=== PATIENT | male | born 1965 | race Caucasian/White ===

== ENCOUNTER 2020-05-31 08:53 | Day surgery (SDC) | payer OTHER ==
[2020-05-31] MEDS ORDERED: Ringers Lactate 1,000 ML IV ONE (09:19)
[2020-05-31] MEDS ORDERED: propofoL 200 MG/20 ML VIAL IV ONE ×3 (10:58)
[2020-05-31] MEDS ORDERED: LIDOCAINE 1% MPF 30 ML VIAL ONE (10:58)
[2020-05-31 12:25] VITALS: TEMP 97.5; O2SAT 96
[2020-05-31 12:27] VITALS: BP 98/54
--- NOTE | 2020-06-03 04:28 | ENDO RPT ---
[address], [address] COLONOSCOPY PROCEDURE REPORT EXAM DATE: 05/31/2020 PATIENT NAME: Efren Schuster MR #: [id number] BIRTHDATE: 1965 ATTENDING: Sj Christian DR STATUS: outpatient PLANT BREEDER: Dominique Cagle RN and Rohan Arana [facility] INDICATIONS: The patient is a 55 yr old Male here for a colonoscopy due to colon cancer screening PROCEDURE PERFORMED: Colonoscopy with biopsy - cold polypectomy MEDICATIONS: Per Anesthesia. ESTIMATED BLOOD LOSS: None CONSENT: The patient understands the risks and benefits of the procedure and understands that these risks include, but are not limited to: sedation, allergic reaction, infection, perforation and/or bleeding. Alternative means of evaluation and treatment include, among others: physical exam, x-rays, and/or surgical intervention. The patient elects to proceed with this endoscopic procedure. DESCRIPTION OF PROCEDURE: During intra-op preparation period all mechanical medical equipment was checked for proper function. Hand hygiene and appropriate measures for infection prevention was taken. Procedure, possible complications, alternatives including, but not limited to possibility of bleeding, perforation, tear, infection, sepsis, need for surgery, need for blood transfusion, were explained to the patient. After the risks, benefits and alternatives of the procedure were thoroughly explained, Informed consent was verified, confirmed and timeout was successfully executed by the treatment team. The patient was placed in the left lateral position. A digital rectal exam was performed and revealed internal hemorrhoids and A digital rectal exam was performed and revealed an enlarged prostate. After appropriate level of anesthesia, the scope was passed. The [id number] ([id number] endoscope was introduced through the anus and advanced to the cecum, which was identified by both the appendix and ileocecal valve. The quality of the prep was fair. The instrument was then slowly withdrawn as the colon was fully examined. Scope withdrawal time was 9 minutes. COLON FINDINGS: A small smooth and polypoid shaped pedunculated polyp with a friable surface was found in the anal canal. A polypectomy was performed with a cold snare. The resection was complete, the polyp tissue was completely retrieved and sent to histology. There was evidence of a prior functional end-to-end colo-colonic surgical anastomosis in the rectosigmoid colon. Retroflexed views revealed no abnormalities. The scope was then completely withdrawn from the patient and the procedure terminated. ADVERSE EVENTS: There were no complications. IMPRESSIONS: 1. Small pedunculated polyp was found; polypectomy was performed with a cold snare 2. There was evidence of a prior colo-colonic surgical anastomosis in the rectosigmoid colon RECOMMENDATIONS: 1. avoid NSAIDS for 2 weeks 2. await biopsy results 3. fiber rich diet 4. follow-up: office 2 week(s) 5. Monitor for any evidence of rectal bleeding. 6. CT scan 7. increase dietary water 8. hemorrhoidal hygiene RECALL: for Colonoscopy, pending biopsy results. Sj Christian DR eSigned: Sj Christian DR 05/31/2020 11:26 AM cc: CPT CODES: ICD9 CODES: PATIENT NAME: Efren Schuster MR#: [id number]
== END 2020-05-31 12:00 | disposition home or self-care (01) ==
LOC: OR 08:53
PROVIDERS: ATTEND Surgery
PROC: 0DBP8ZX Excision of Rectum, Via Natural or Artificial Opening Endoscopic, Diagnostic (ICD-10-PCS; principal; 2020-05-31 10:15)
DX: Z12.11 Encounter for screening for malignant neoplasm of colon (principal); D12.9 Benign neoplasm of anus and anal canal; K64.8 Other hemorrhoids; N40.0 Benign prostatic hyperplasia without lower urinary tract symptoms; K43.2 Incisional hernia without obstruction or gangrene; F17.200 Nicotine dependence, unspecified, uncomplicated; Z20.828 Contact with and (suspected) exposure to other viral communicable diseases; Z98.0 Intestinal bypass and anastomosis status
CPT/HCPCS: 88305; 45385; U0002; J2704 ×3; J7120

== ENCOUNTER 2020-07-05 07:32 | Day surgery (SDC) | payer OTHER ==
--- OUTSIDE RECORDS SUMMARY | 2020-07-05 07:36 | XMS REPORT | Continuity of Care Document ---
:1965 Author Organization [facility] t Address [address] [place] [address] Care Team Providers Name Role Phone Unavailable Unavailable Unavailable Problems This patient has no known problems. Allergies, Adverse Reactions, Alerts This patient has no known allergies or adverse reactions. Medications This patient has no known medications. Procedures This patient has no known procedures. Encounters Start End Encounter Admission Attending Care Care Encounter Source Date/Time Date/Time Type Type Clinicians Facility Department ID 2020-06-29 2020-06-29 Outpatient [facility] [id number] [facility] 2020-06-22 2020-06-22 Outpatient [facility] [id number] [facility] Results This patient has no known results.
--- OUTSIDE RECORDS SUMMARY | 2020-07-05 07:36 | XMS REPORT ---
:1965 Author Organization [facility] Address [address], [facility] [address] [place] [address] Care Team Providers Name Role Phone Mauricio Unavailable [phone] PROBLEMS Type Condition ICD9-CM [id number] Onset Condition SNOMED Code Notes Code Code Dates Status Problem Arthritis M19.90 Active 0835007 Problem Essential I10 Active 61003137 hypertension Problem Ventral hernia K43.9 Active 881142942 without obstruction or gangrene Problem Primary M19.012 Active 314084985253236 osteoarthritis, left shoulder Problem Primary M19.011 Active 176354477399710 osteoarthritis, right shoulder Problem Cervical M54.12 Active 32552793 radiculopathy Problem Other chronic G89.29 Active 65897048 pain Problem Pain, joint, M25.511 Active 92201668367217961 shoulder, right Problem Pain, joint, M25.512 Active 75868363126109790 shoulder, left ALLERGIES No Known Allergies ENCOUNTERS from 1965 to 2020-06-28 Encounter Location Date Provider Diagnosis [facility] [address] 13 Jun, 2020 Tavon Martínez Pain , joint, [facility] [address] [employer] [employer], shoulder, [place] [address] M25.511 ; Pain , joint, shoulder , left M25.512 ; Primary osteoarthritis, right shoulder M19.011 and Imani lucille osteoarthritis, left shoulder M19.012 IMMUNIZATIONS Vaccine Route Administration Date Status Bupivicaine [place] Unknown Jun 22, 2020 Administered Prevnar 13 -Pneumonia Vaccine Unknown Apr 12, 2020 Ad ministered Kenalog (Triamcinolone) Unknown Jun 22, 2020 Administ ered SOCIAL HISTORY Tobacco Use: Social History Observation Description Date Details (start date - stop date) Current Smoker Sex Assigned At : Social History Observation Description Sex Assigned At Unknown Alcohol Screen Question Answer Notes Did you have a drink containing alcohol in Yes the past year? Points 6 Interpretation Positive How often did you have 6 or more drinks on Less than monthly (1 point) one occasion in the past year? How many drinks did you have on a typical 5 or 6 (2 points) day when you were drinking in the past year? How often did you have a drink containing Two to three times per week (3 alcohol in the past year? points) Tobacco Use/Smoking Question Answer Notes Are you a current smoker REASON FOR REFERRAL No Information VITAL SIGNS Height 69 in Jun, Weight 185.2 lbs Jun, BMI 27.35 kg/m2 Jun, Blood pressure systolic 120 mm Hg Jun, Blood pressure diastolic 84 mm Hg Jun, MEDICATIONS Medication SIG (Take, Route, Frequency, Start Date End Date Status Duration) Methocarbamol 750 MG TAKE 1 TABLET BY MOUTH TWICE Active A DAY Oral for 30 Lisinopril/HCTZ 20/12.5 one tablet PO Q daily for 90 1 Aug, Active days Centrum Silver - as directed Orally Activ e Meloxicam 15 MG as directed Orally Active Amlodipine Besylate 5 MG 1 tablet Orally Once a day Active for 30 Vitamin D3 405973 UNIT/GM as directed Ac tive Chantix 1 MG as directed Orally Active Sildenafil Citrate 100 MG 1 tablet as needed Orally Active Once a day for 30 day(s) Diclofenac Sodium 75 MG 1 tablet Orally Twice a day Active for 30 PROCEDURES No Information RESULTS No Results REASON FOR VISIT CONSULT: ELEAZAR SHOULDER PAIN(Logan) MEDICAL (GENERAL) HISTORY Type Description Date Medical History ERECTILE DISFUNCTION Medical History HTN Medical History Anxiety Medical History Diverticulitis Medical History TAKING ASPIRIN Surgical History removal of section of intestine 2011 Surgical History Endoscopy 06/03/2020 Surgical History Foot B/L Surgical History Hand LT- Ring finger Hospitalization History colectomy 2012 Goals Section No Information Health Concerns No Information MEDICAL EQUIPMENT No Information MENTAL STATUS No Information FUNCTIONAL STATUS No Information ASSESSMENTS Encounter Date Diagnosis Notes Jun, Primary osteoarthritis, left shoulder (I CD-10 - M19.012) Jun, Pain, joint, shoulder, right (ICD-10 - M 25.511) Jun, Primary osteoarthritis, right shoulder ( ICD-10 - M19.011) Jun, Pain, joint, shoulder, left (ICD-10 - M2 5.512) PLAN OF TREATMENT Treatment Notes Assessment Notes Clinical Notes Primary osteoarthritis, right -proceed with conservative sid atment shoulder measures including NSAIDs as needed, home exercise program and corticosteroid injections-given left shoulder kenalog injection without complication-ice and rest shoulder for 24 hours-f/u for right shoulder kenalog injection-if he has continued pain, we will discuss MRI Primary osteoarthritis, left -proceed with conservative esme tment shoulder measures including NSAIDs as needed, home exercise program and corticosteroid injections-given left shoulder kenalog injection without complication-ice and rest shoulder for 24 hours-f/u for right shoulder kenalog injection-if he has continued pain, we will discuss MRI Treatment Notes Test Name Order Date X-RAY EXAM SHOULDER 2 VIEWS ([id number]) 2020-06-28 XR SHOULDER ([id number]) 2020-06-28 Next Appt Details Right shoulder Kenalog Reason: Provider Name:Tavon Martínez, 2020-06-29 0 9:15:00 AM, [address], [place], [address], Provider Name:Anitra Salinasok, 2020-07-26 01 :00:00 PM, [address], [address], [place], [address], Insurance Providers Payer Name Payer Address Payer Insured Patient Coverage Cover age Phone Name Relationship to Start Date End Date Insured [facility] [phone] Efren Schuster [employer] [facility] [address] [address] [facility])
--- OUTSIDE RECORDS SUMMARY | 2020-07-05 07:36 | XMS REPORT ---
:1965 Author Organization [facility] Address [address], [facility] [address] [place] [address] Care Team Providers Name Role Phone Mauricio Unavailable [phone] PROBLEMS Type Condition ICD9-CM [id number] Onset Condition SNOMED Code Notes Code Code Dates Status Problem Arthritis M19.90 Active 6479057 Problem Essential I10 Active 57989425 hypertension Problem Ventral hernia K43.9 Active 134126257 without obstruction or gangrene Problem Primary M19.012 Active 074238101984109 osteoarthritis, left shoulder Problem Primary M19.011 Active 756641642889986 osteoarthritis, right shoulder Problem Cervical M54.12 Active 36674440 radiculopathy Problem Other chronic G89.29 Active 71192109 pain Problem Pain, joint, M25.511 Active 51613645315920675 shoulder, right Problem Pain, joint, M25.512 Active 58761846638971343 shoulder, left ALLERGIES No Known Allergies ENCOUNTERS from 1965 to 2020-07-04 Encounter Location Date Provider Diagnosis [facility] [address] Jun, Tavon herreray [facility] [address], [facility] [address] right shoulder M19.011 ; Pain, joint, shoulder , left M25.512 ; Pain, joint, shoulder, right M25.511 and Imani lucille osteoarthritis, left shoulder M19.012 IMMUNIZATIONS Vaccine Route Administration Date Status Bupivicaine Alex Unknown Jun 29, 2020 Administered Bupivicaine Alex Unknown Jun 22, 2020 Administered Prevnar 13 -Pneumonia Vaccine Unknown Apr 12, 2020 Ad ministered Kenalog (Triamcinolone) Unknown Jun 29, 2020 Administ eregermaine Kenalog (Triamcinolone) Unknown Jun 22, 2020 Administ eregermaine SOCIAL HISTORY Tobacco Use: Social History Observation Description Date Details (start date - stop date) Never Smoker Sex Assigned At : Social History [...] Use/Smoking Question Answer Notes Are you a never smoker Additional Findings: Tobacco Non-User Current non-smoker REASON FOR REFERRAL No Information VITAL SIGNS Height 69 in Jun, Weight 185 lbs Jun, Temperature 97.1 degrees Fahrenheit Jun, BMI 27.32 kg/m2 Jun, Blood pressure systolic 120 mm Hg Jun, Blood pressure diastolic 78 mm Hg Jun, MEDICATIONS Medication SIG (Take, Route, Start Date End Date Status Frequency, Duration) Chantix 1 MG as directed Orally Active Methocarbamol 750 MG TAKE 1 TABLET BY MOUTH Active TWICE A DAY Oral for 30 Vitamin D3 104253 UNIT/GM as directed Ac tive Lisinopril/HCTZ 12.5 one tablet PO Q daily Aug, Active for 90 days Lisinopril-Hydrochlorothiaz Active cristal Diclofenac Sodium 75 MG 1 tablet Orally Twice a Active day for 30 Amlodipine Besylate 5 MG 1 tablet Orally Once a Active day for 30 BuPROPion HCl ER (SR) Not-Ta Sildenafil Citrate 100 MG 1 tablet as needed Active Orally Once a day for 30 day(s) Centrum Silver - as directed Orally Activ e Meloxicam 15 MG as directed Orally Not-Ta Ibuprofen Active PROCEDURES No Information RESULTS No Results REASON FOR VISIT F/U RT SHOULDER PAIN- KENALOG INJECTION MEDICAL (GENERAL) HISTORY Type Description Date Medical [...] left shoulder (I CD-10 - M19.012) Jun, Primary osteoarthritis, right shoulder ( ICD-10 - M19.011) Jun, Pain, joint, shoulder, right (ICD-10 - M 25.511) Jun, Pain, joint, shoulder, left (ICD-10 - M2 5.512) PLAN OF TREATMENT Medication Medication Name Sig Start Date Stop Date Diclofenac Sodium 75 MG 1 tablet Orally Twice a day for 30 Treatment Notes Assessment Notes Clinical Notes Primary osteoarthritis, right -proceed with conservative sid atment shoulder measures including NSAIDs as needed, home exercise program and corticosteroid injections-given right shoulder kenalog injection without complication-ice and rest shoulder for 24 hours-if he has continued pain, we will discuss MRI Primary osteoarthritis, left -proceed with conservative esme tment shoulder measures including NSAIDs as needed, home exercise program and corticosteroid injections-given right shoulder kenalog injection without complication-ice and rest shoulder for 24 hours-if he has continued pain, we will discuss MRI Next Appt Details 2 Months Reason: Provider Name:Anitra Ortega, 2020-07-26 01 :00:00 PM, [address], [address], [place], [address], Provider Name:Tavon Martínez, 2020-09-06 0 1:00:00 PM, [address], [place], [address], Insurance Providers Payer Name Payer Address Payer Insured Patient Coverage Cover age Phone Name Relationship to Start Date End Date Insured [facility] [phone] Efren Schuster [facility] [address] [address] [facility])
[2020-07-05] MEDS ORDERED: Ringers Lactate 1,000 ML IV ONE ×2 (08:01→09:27)
[2020-07-05] MEDS ORDERED: CEFAZOLIN/SWI 1gm 1 GM/10 ML SYR ONE (08:01)
[2020-07-05] MEDS ORDERED: BUPIVACA 0.25%/EPI 0.0005% MDV 50 ML VIAL ONE (08:14)
[2020-07-05] MEDS ORDERED: ROCURONIUM 50 MG/5 ML VIAL IV ONE ×2 (08:23→09:06)
[2020-07-05] MEDS ORDERED: FENTANYL CITR 100 MCG/2 ML ONE ×2 (08:23→09:07)
[2020-07-05] MEDS ORDERED: propofoL 200 MG/20 ML VIAL IV ONE (08:23)
[2020-07-05] MEDS ORDERED: ONDANSETRON 4 MG/2 ML VIAL ONE ×2 (08:24→12:24)
[2020-07-05] MEDS ORDERED: LIDOCAINE 2% MPF 5 ML VIAL ONE (08:24)
[2020-07-05] MEDS ORDERED: MIDAZOLAM HCL 2 MG/2 ML INJ ONE (08:24)
[2020-07-05] MEDS ORDERED: dexAMETHasone 4 MG/ML VIAL ONE (08:24)
[2020-07-05] MEDS ORDERED: KETOROLAC 30 MG/ML INJ ONE (08:24)
[2020-07-05] MEDS ORDERED: NS 0.9% VIAL 10 ML ONE ×3 (09:06→10:13)
[2020-07-05] MEDS ORDERED: VECURONIUM 10 MG/VIAL IV ONE (09:07)
[2020-07-05] MEDS ORDERED: Phenylephrine HCl 10 MG/ML 1 ML VIAL ONE (09:18)
--- NOTE | 2020-07-05 10:36 | P.OP ---
Preoperative diagnosis: Large Incisional Ventral Hernia Postoperative diagnosis: Large Incisional Ventral Hernia Primary procedure: Laparoscopic Ventral Hernia Repair with mesh Anesthesia: GETA + Local Estimated blood loss: <5cc Specimen: None Findings: 20cm x15 cm ventral hernia, bruneian cheese type Complications: None Implants: Bard Ventralite ST Mesh with echo postition [id number] Transferred to: Recovery Room Condition: Good
[2020-07-05] MEDS ORDERED: GLYCOPYRROLATE 0.2 MG/ML SYR ONE (10:42)
[2020-07-05] MEDS: HYDROMORPHONE HCL 1 MG/ML INJ ONE ×5 (10:52→11:26)
[2020-07-05] MEDS ORDERED: NEOSTIGMINE 1 MG/ML -5 ML ONE (10:57)
[2020-07-05] MEDS: MEPERIDINE HCL 25 MG/ML SYR ONE ×2 (11:07→11:12)
--- NOTE | 2020-07-05 11:38 | OP ---
Date of Procedure: 07/05/2020 Surgeon: Carrie Christian MD, Preoperative Diagnosis: Large incisional ventral hernia. Postoperative Diagnosis: Large incisional ventral hernia. Procedure Performed: Laparoscopic ventral repair with mesh. Anesthesia: General endotracheal plus local with 0.25% Marcaine. Estimated Blood Loss: Less than 5 mL. Specimen: None. Findings: A 20 cm x 15 cm ventral hernia, complex, Finnish cheese appearance through the midline incis ional type. Specimen: None. Complications: None. Implants: Bard Ventralight ST mesh with Echo Positioning System approximately 25 x 20 cm. Disposition: The patient transferred recovery in good condition. Procedure In Detail: After informed consent was obtained, the patient was brought to the operating r oom, prepped and draped in the usual sterile fashion. After adequate anesthesia, a left upper quadra nt incision was made. A 5 mm 0-degree optical trocar was introduced in the abdomen without any evide nce of complication. Insufflation was obtained to 15 mmHg at this time. There was no injury to deejay l structure into the abdomen. Additional trocar was chosen in the left lower quadrant. This was sim ilarly anesthetized and sharply incised. A 5 mm trocar was introduced in the abdomen without any seven dence of complication. The left upper quadrant was then up-sized to a 12 mm under direct vision with out any evidence of complication. Additional trocar was placed in the right lower quadrant. The are a was similarly anesthetized and sharply incised. A 5 mm trocar was introduced in the abdomen withou t any evidence of complication. I then proceeded to take the omentum out of the hernia, which was on the midline. This was cheese appearance approximately 20 cm x 15 cm defect. I removed the omentum using a combination of blunt and electrocautery dissection. Using the LigaSure device, the omentum w as essentially completely cleared and the falciform ligament was pushed anteriorly and dissected free slightly to allow for an adequate landing zone. I sized the mesh appropriately at this point and br ought it into the lateral trocar and secured it circumferentially using the balloon deployment system through the central portion of the wound using the Echo Positioning System and a Garrick-Sourav sut ure passer. After the mesh was deployed, I circumferentially placed double crown of absorbable tacks using the SorbaFix fixation tacks. Approximately 100 tacks were used securing the mesh to the anter ior abdominal wall with good apposition of the tissues. I checked under de-sufflation. Pressure tana osition was good. I then noted there was 1 area of bleeding from the right lower quadrant through on e of the areas where a tack absorbable fixation tack was placed. I made a small stab incision in the right lower quadrant and passed a 2-0 PDS suture with good hemostasis at this point using a Garrick-BerGenBio suture passer. I then inspected the area and no additional maneuvers were required. I then removed the left upper quadrant trocar, which was a 12 mm trocar and closed with a Rene vang ture passer with 0 Vicryl in interrupted fashion with good approximation of tissues and then desuffla carrie the abdomen under direct visualization without any evidence of complication. All trocars were re moved. All skin incisions were copiously irrigated and closed with 4-0 Monocryl in a running fashion . Dermabond was placed over top. An abdominal binder was placed with a dressing anteriorly. The pa tient tolerated the procedure well without any evidence of complication and transferred to PACU in go od condition. All counts were correct at the end of the case. JING/AMANDA Voice ID: [id number] Report ID: [id number]
[2020-07-05] MEDS ORDERED: NA CHLORIDE 0.9% 500 ML ONE (11:41)
[2020-07-05 11:55] VITALS: BP 102/67; TEMP 98.2; O2SAT 91
[2020-07-05] MEDS ORDERED: HYDROCODONE/APAP 7.5/325 MG TAB ONE (12:30)
== END 2020-07-05 13:05 | disposition home or self-care (01) ==
LOC: OR 07:32
PROVIDERS: ATTEND Surgery
PROC: 0WUF4JZ Supplement Abdominal Wall with Synthetic Substitute, Percutaneous Endoscopic Approach (ICD-10-PCS; principal; 2020-07-05 08:30)
DX: K43.2 Incisional hernia without obstruction or gangrene (principal); Z20.828 Contact with and (suspected) exposure to other viral communicable diseases
CPT/HCPCS: 49654; U0002; J2704; J1100; J2370; J2250; J3010 ×2; J2175; J1170 ×2; J2710; J0690; J7120 ×2; J7040; J2405 ×2

== ENCOUNTER 2020-11-26 06:39 | Day surgery (SDC) | payer OTHER, SELFPAY ==
[2020-11-26] MEDS ORDERED: Phenylephrine HCl 10 MG/ML 1 ML VIAL ONE (07:02)
[2020-11-26] MEDS ORDERED: LIDOCAINE 4% TOP SOLUTION ONE (07:03)
[2020-11-26] MEDS ORDERED: LIDOCAINE VISCOUS 2% SOLN 15 ML UDC ONE ×2 (07:03→07:26)
[2020-11-26] MEDS ORDERED: LIDOCAINE 1% MPF 30 ML VIAL ONE ×2 (07:03→07:26)
[2020-11-26] MEDS ORDERED: GLYCOPYRROLATE 0.2 MG/ML SYR ONE (07:03)
[2020-11-26] MEDS ORDERED: Ringers Lactate 1,000 ML IV ONE (07:04)
[2020-11-26] MEDS ORDERED: MIDAZOLAM HCL 2 MG/2 ML INJ ONE (07:49)
[2020-11-26] MEDS ORDERED: LIDOCAINE 1% MPF 5 ML VIAL ONE (08:00)
[2020-11-26] MEDS ORDERED: propofoL 200 MG/20 ML VIAL IV ONE (08:00)
[2020-11-26] MEDS ORDERED: FENTANYL CITR 100 MCG/2 ML ONE (08:00)
--- NOTE | 2020-11-26 08:54 | RAD REPORT ---
EXAM DESCRIPTION: RAD - FLUORO-GUIDE FOR BRONCH UPT1HR - 11/26/2020 8:35 am CLINICAL HISTORY: Lung mass FINDINGS: Three fluoroscopic spot images obtained. Bronchoscope is present within the right lung Fluoroscopy time 4.2 minutes Bronchoscopy performed by Dr. Patel
--- NOTE | 2020-11-26 09:13 | P.OP ---
Date of Service: 11/26/20 (Bronchoscopy with a right upper lobe biopsy) Findings and Operative Technique Patient is [age] years of age presented with advanced lung cancer had upper lobe mass with mediastinal adenopathy was admitted for bronchoscopy narrative report after obtaining informed consent from the patient he was premedicated Findings normal vocal cords normal trachea normal sammi normal left-sided bronchial anatomy normal bronchus iintermedius, right lower low/no obvious tumor found in the right upper lobe bronchus I was not able advance the biopsy forceps I suspect he may have right distal obstruction Procedure complicated by i.e. bleeding I was not able to do the BAL are wire brushings in addition patient had the significant obstruction of his airway from the medication the presumably has obstructive sleep apnea
[2020-11-26 09:15] VITALS: TEMP 97.2; O2SAT 98
[2020-11-26 09:35] VITALS: BP 107/74
--- NOTE | 2020-11-26 09:53 | RAD REPORT ---
EXAM DESCRIPTION: Akhil Single View3 9:27 am CLINICAL HISTORY: Device placement bronchoscopy placement IMPRESSION: A pneumothorax is not present status post bronchoscopy.
== END 2020-11-26 10:08 | disposition home or self-care (01) ==
LOC: OR 06:39
PROVIDERS: ATTEND Internal Medicine Sleep Medicine
PROC: 0BJ08ZZ Inspection of Tracheobronchial Tree, Via Natural or Artificial Opening Endoscopic (ICD-10-PCS; principal; 2020-11-26 07:30)
DX: R91.8 Other nonspecific abnormal finding of lung field (principal); Z87.891 Personal history of nicotine dependence; Z20.822 Contact with and (suspected) exposure to COVID-19
CPT/HCPCS: 31622; 88305; 71045; 76000; U0002; J2704; J2370; J2250; J7120; J3010

== ENCOUNTER 2021-02-24 06:30 | Day surgery (SDC) | payer OTHER, SELFPAY ==
[2021-02-24] MEDS ORDERED: BSS OPTHALMIC SOL 15 ML BOT OPTH ONE (07:11)
[2021-02-24] MEDS ORDERED: BALANCED SALT IRRIG PLAIN 500 ML BTL IRR ONE (07:11)
[2021-02-24] MEDS ORDERED: TOBRADEX 0.3-0.1% OPTH OINTMENT ONE (07:11)
[2021-02-24] MEDS ORDERED: POVIDONE-IODINE 5% EYE DROPS ONE (07:12)
[2021-02-24] MEDS ORDERED: EPINEPHRINE/PF 1 MG/ML AMP ONE (07:12)
[2021-02-24] MEDS ORDERED: TROPICAMIDE 1% OPTH 3 ML BOT ONE (07:14)
[2021-02-24] MEDS ORDERED: CYCLOPENTOLATE 2% OPTH 2 ML ONE (07:15)
[2021-02-24] MEDS ORDERED: PHENYLEPHRINE 2.5% OPTH 2 ML ONE (07:15)
[2021-02-24] MEDS ORDERED: Ringers Lactate 1,000 ML IV ONE (07:15)
[2021-02-24] MEDS ORDERED: KETOROLAC OPTHALMIC 5 ML BOT ONE (07:15)
[2021-02-24] MEDS ORDERED: MOXIFLOXACIN HCL 0.5% 3ML OPTH OPTH ONE (07:15)
[2021-02-24] MEDS ORDERED: propofoL 200 MG/20 ML VIAL IV ONE (07:20)
[2021-02-24] MEDS ORDERED: LIDOCAINE 2% MPF 5 ML VIAL ONE (07:21)
[2021-02-24] MEDS ORDERED: MIDAZOLAM HCL 2 MG/2 ML INJ ONE (07:21)
[2021-02-24] MEDS ORDERED: FENTANYL CITR 100 MCG/2 ML ONE (07:21)
[2021-02-24] MEDS ORDERED: DIAZEPAM 5 MG TABLET ONE (07:38)
[2021-02-24] MEDS ORDERED: DUOVISC 1 KIT OPTH ONE (08:00)
[2021-02-24] MEDS ORDERED: EPHEDRINE SULF 50 MG/ML VIAL ONE (08:23)
[2021-02-24 08:59] VITALS: O2SAT 94
[2021-02-24 10:33] VITALS: BP 89/65; TEMP 98.2
--- NOTE | 2021-02-24 20:35 | OP ---
Date of Procedure: 02/24/2021 Surgeon: Jose A Pinto MD Requirements Analyst: None. Preoperative Diagnosis: Visually significant cataract, left eye. Postoperative Diagnosis: Visually significant cataract, left eye. Description Of Procedure: After being properly identified in the preoperative holding area, the jeb ent was taken back to the operating room where a time-out was performed. The patient was then preppe d and draped in the normal sterile fashion. Two paracentesis ports were made using a 1.0 mm blade at the 12 o'clock and 6 o'clock position, and then the anterior chamber instilled with Viscoat. Graspi ng the globe with a pair of 0.12 forceps, the main phaco incision wound was made temporally using a 2 .75 mm keratome in a triplaner fashion. The anterior capsulotomy was performed using a cystotome and Utrata forceps. Hydrodissection and hydrodelineation of the lens were carried out using a Kenyon can nula resulting in free rotation of the lens nucleus. Thereafter, the lens was removed in a standard divide and conquer technique. Once all 4 quadrants had been removed, the phaco handpiece was exchang ed for a bimanual irrigation and aspiration handpieces through the paracentesis port, and all cortica l material was removed as well as the capsule being polished. The capsular bag was then insufflated with additional viscoelastic as part of the DuoVisc pack and an Solo model SN60WF, power 21.0 diopte r, serial #[id number] was delivered into the capsular bag and delivered into position with the hapti cs oriented at the 3 o'clock and 9 o'clock position. The viscoelastic was then removed using both th e bimanual and later coaxial handpiece. Once all viscoelastic had been removed, the wounds were hydr ated and tested for water tightness. The superior paracentesis wound did display small leak, and the refore, a single interrupted 10-0 nylon suture was placed. The iris did prolapse out of the wound on ce and it was reposited with relative ease. Because of the good depth of the chamber and good seal a fter hydration, no suture was placed through this wound as it was not felt that it was necessary. Th ere were no complications. Estimated Blood Loss: Less than 1 mL. The patient is to follow up with myself, Dr. Jose A Pinto, at the [facility] tomorrow morning. JPG/MODL Voice ID: [id number] Report ID: [id number]
== END 2021-02-24 10:10 | disposition home health service (06) ==
LOC: OR 06:30
PROVIDERS: ATTEND Ophthalmology
PROC: 08RK3JZ Replacement of Left Lens with Synthetic Substitute, Percutaneous Approach (ICD-10-PCS; principal; 2021-02-24 07:30)
DX: H26.9 Unspecified cataract (principal); H54.3 Unqualified visual loss, both eyes
CPT/HCPCS: 66984; J2704; J0171; J2250; J3010; J7120

== ENCOUNTER 2022-08-06 13:53 | Emergency (ER) | payer OTHER ==
--- OUTSIDE RECORDS SUMMARY | 2022-08-06 13:57 | XMS REPORT | Continuity of Care Document ---
:1965 Author Organization [facility] t Address [address] [place] [address] Care Team Providers Name Role Phone ZephyrhillsAnitra leon Attending Clinician Unavailable GINA UMANA Attending Clinician Unavailable Payers Payer Name Policy Type Policy Number Effective Date Expiration Date S [place] [address] [id number] [facility] (market [facility] [address] [place] [phone] [id number] [facility] ([facility] [address] [place] [phone] [id number] [facility] ([facility] [place] [address] [id number] [facility] ([facility] Problems Condition Condition Condition Status Onset Resolution Last Treating Co mments Source Name Details Category Date Date Treatment Clinician Date 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 [id number] Arthritis Problem Active Commo n Spirit - [facility] [id number] Cervical Problem Active Commo n radiculopa Spirit thy - [facility] [id number] Ventral Problem Active Commo n hernia Spirit without - [facility] obstructio [facility] gangrene [facility] [id number] Essential Problem Active Comm on hypertensi Spirit on - [facility] [id number] Pain, Problem Active Commo n [id number] joint, Spirit shoulder, - [facility] left 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 [id number] Primary Problem Active Comm on osteoarthr Spirit itis, - [facility] right [facility] [id number] Nontraumat Problem Active C ommon [id number] ic Spirit complete - [facility] tear of left [facility] rotator Medical cuff Center [id number] Pain, Problem Active Commo n [id number] joint, Spirit shoulder, - [facility] right [facility] [id number] Smoker Problem Active Common Spirit - [facility] [id number] Other Problem Active Common chronic Spirit pain - [facility] [id number] Carpal Problem Active Common tunnel Spirit syndrome - [facility] of left [facility] [id number] Tear of Problem Active Common left [facility] unspec[facility]ie d whether traumatic [id number] Bilateral Problem Active Co mmon [id number] carpal Spirit tunnel - [facility] syndrome [facility] Allergies, Adverse Reactions, Alerts This patient has no known allergies or adverse reactions. Social History Social Habit Start Date Stop Date Quantity Comments Source History of Tobacco Use Co mmon [facility] Sex Assigned At Com mon [facility] Smoking Status Start Date Stop Date Source Never Smoker Common [facility] Medications Ordered Filled Start Stop Current Ordering Indication Dosage Frequency Signature Comments Components Source Medication Medication Date Date Medication? Clinician (SIG) Name Name Izabella Parekh 0 No 40mg Common (Triamcinol (Triamcinol 9-13 S pirit one) one) 00:00: - [facility] Izabella Parekh 0 No 40mg Common (Triamcinol (Triamcinol 9-13 S pirit one) one) 00:00: - [facility] Naropin Naropin 2021-0 No 5mg Common (Ropivacain (Ropivacain 9-13 S pirit e HCl) e HCl) 00:00: - [facility] Naropin Naropin 2021-0 No 5mg Common (Ropivacain (Ropivacain 9-13 S pirit e HCl) e HCl) 00:00: - [facility] Izabella Parekh 2021-0 No 40mg Common (Triamcinol (Triamcinol 9-13 S pirit one) one) 00:00: - [facility] Izabella Parekh 2021-0 No 40mg Common (Triamcinol (Triamcinol 9-13 S pirit one) one) 00:00: - [facility] Naropin Naropin 2021-0 No 5mg Common (Ropivacain (Ropivacain 9-13 S pirit e HCl) e HCl) 00:00: - [facility] Naropin Naropin 2021-0 No 5mg Common (Ropivacain (Ropivacain 9-13 S pirit e HCl) e HCl) 00:00: - [facility] Sildenafil Sildenafil 2021-0 2- No 1{table QD Sildenafil Citrate 100 Citrate 100 01-03 t_as_ne Citrate MG MG 00:00: 00:00 eded} 100 MG 00 :00 Sildenafil Sildenafil 2021- No 1{table QD Sildenafil Citrate 100 Citrate 100 01-03- t_as_ne Citrate MG MG 00:00: 00:00 eded} 100 MG 00 :00 Sildenafil Sildenafil 2021- No 1{table QD Sildenafil Citrate 100 Citrate 100 01-03 t_as_ne Citrate MG MG 00:00: 00:00 eded} 100 MG 00 :00 Sildenafil Sildenafil 2021- No 1{table QD Sildenafil Citrate 100 Citrate 100 01-03- t_as_ne Citrate MG MG 00:00: 00:00 eded} 100 MG 00 :00 Sildenafil Sildenafil 2021- No 1{table QD Sildenafil Citrate 100 Citrate 100 01-03 t_as_ne Citrate MG MG 00:00: 00:00 eded} 100 MG 00 :00 Albuterol Albuterol No 1{puff_ Albuterol Sulfate HFA Sulfate HFA 1-26 as_need Sulfate 108 (90 108 (90 00:00: ed} HFA 108 Base) Base) 00 (90 Base) MCG/ACT MCG/ACT MCG/ACT Albuterol Albuterol No 1{puff_ Albuterol Sulfate HFA Sulfate HFA 1-26 as_need Sulfate 108 (90 108 (90 00:00: ed} HFA 108 Base) Base) 00 (90 Base) MCG/ACT MCG/ACT MCG/ACT Albuterol Albuterol No 1{puff_ Albuterol Sulfate HFA Sulfate HFA 1-26 as_need Sulfate 108 (90 108 (90 00:00: ed} HFA 108 Base) Base) 00 (90 Base) MCG/ACT MCG/ACT MCG/ACT Albuterol Albuterol No 1{puff_ Albuterol Sulfate HFA Sulfate HFA 1-26 as_need Sulfate 108 (90 108 (90 00:00: ed} HFA 108 Base) Base) 00 (90 Base) MCG/ACT MCG/ACT MCG/ACT Albuterol Albuterol 2022-0 No 1{puff_ Albuterol Sulfate HFA Sulfate HFA 1-26 as_need Sulfate 108 (90 108 (90 00:00: ed} HFA 108 Base) Base) 00 (90 Base) MCG/ACT MCG/ACT MCG/ACT Albuterol Albuterol 0 No 1{puff_ Albuterol Sulfate HFA Sulfate HFA 1-26 as_need Sulfate 108 (90 108 (90 00:00: ed} HFA 108 Base) Base) 00 (90 Base) MCG/ACT MCG/ACT MCG/ACT Albuterol Albuterol 0 No 1{puff_ Albuterol Sulfate HFA Sulfate HFA 1-26 as_need Sulfate 108 (90 108 (90 00:00: ed} HFA 108 Base) Base) 00 (90 Base) MCG/ACT MCG/ACT MCG/ACT Budesonide- Budesonide- 2021-0 2022- No 2{puffs QD Budesonide Formoterol Formoterol 10-05 } -Formotero Fumarate Fumarate 00:00: 00:00 l Fumarate 80-4.5 80-4.5 00 :00 80-4.5 MCG/ACT MCG/ACT MCG/ACT Budesonide- Budesonide- 0 2021- No 2{puffs QD Budesonide Formoterol Formoterol -01-03 } -Formotero Fumarate Fumarate 00:00: 00:00 l Fumarate 80-4.5 80-4.5 00 :00 80-4.5 MCG/ACT MCG/ACT MCG/ACT Bupivicaine Bupivicaine 0 No 2.5mg Common [place] Williamson 1-25 Spirit 00:00: - [facility] Bupivicaine Bupivicaine 2021-0 No 2.5mg Common [place] Williamson 1-25 Spirit 00:00: - [facility] Kenalog Kenalog 2021-0 No 40mg Common (Triamcinol (Triamcinol 1-25 S pirit one) one) 00:00: - [facility] Kenalog Kenalog 2021-0 No 40mg Common (Triamcinol (Triamcinol 1-25 S pirit one) one) 00:00: - [facility] Bupivicaine Bupivicaine 2021-0 No 2.5mg Common [place] 1-25 Spirit 00:00: - [facility] Bupivicaine Bupivicaine 2021-0 No 2.5mg Common [place] 1-25 Spirit 00:00: - [facility] Kenalog Kenalog 2021-0 No 40mg Common (Triamcinol (Triamcinol 1-25 S pirit one) one) 00:00: - [facility] Kenalog Kenalog 2021-0 No 40mg Common (Triamcinol (Triamcinol 1-25 S pirit one) one) 00:00: - [facility] Bupivicaine Bupivicaine 2021-0 No 2.5mg Common [place] 1-25 Spirit 00:00: - [facility] Bupivicaine Bupivicaine 2021-0 No 2.5mg Common [place] 1-25 Spirit 00:00: - [facility] Kenalog Kenalog 0 No 40mg Common (Triamcinol (Triamcinol 1-25 S pirit one) one) 00:00: - [facility] Kenalog Kenalog 2021-0 No 40mg Common (Triamcinol (Triamcinol 1-25 S pirit one) one) 00:00: - [facility] Kenalog Kenalog 2021-0 No 40mg Common (Triamcinol (Triamcinol 1-25 S pirit one) one) 00:00: - [facility] Bupivicaine Bupivicaine 2021-0 No 2.5mg Common [place] 1-25 Spirit 00:00: - [facility] Bupivicaine Bupivicaine 2021-0 No 2.5mg Common [place] 1-25 Spirit 00:00: - [facility] Kenalog Kenalog 2021-0 No 40mg Common (Triamcinol (Triamcinol 1-25 S pirit one) one) 00:00: - [facility] Kenalog Kenalog 2021-0 No 40mg Common (Triamcinol (Triamcinol 1-25 S pirit one) one) 00:00: - [facility] Bupivicaine Bupivicaine 2-0 No 2.5mg Common [place] 1-25 Spirit 00:00: - [facility] Bupivicaine Bupivicaine 2-0 No 2.5mg Common [place] 1-25 Spirit 00:00: - [facility] Kenalog Kenalog 2021-0 No 40mg Common (Triamcinol (Triamcinol 1-25 S pirit one) one) 00:00: - [facility] Sertraline Sertraline 2020-1 No 1{table QD Sertraline HCl 100 MG HCl 100 MG 0-26 t} HCl 100 MG 00:00: 00 Sertraline Sertraline 2020-1 No 1{table QD Sertraline HCl 100 MG HCl 100 MG 0-26 t} HCl 100 MG 00:00: 00 Sertraline Sertraline 2020-1 No 1{table QD Sertraline HCl 100 MG HCl 100 MG 0-26 t} HCl 100 MG 00:00: 00 Sertraline Sertraline 2020-1 No 1{table QD Sertraline HCl 100 MG HCl 100 MG 0-26 t} HCl 100 MG 00:00: 00 Sertraline Sertraline 2020-1 No 1{table QD Sertraline HCl 100 MG HCl 100 MG 0-26 t} HCl 100 MG 00:00: 00 Sertraline Sertraline 2020-1 No 1{table QD Sertraline HCl 100 MG HCl 100 MG 0-26 t} HCl 100 MG 00:00: 00 Sertraline Sertraline 2020-1 No 1{table QD Sertraline HCl 100 MG HCl 100 MG 0-26 t} HCl 100 MG 00:00: 00 Sertraline Sertraline 2020-1 No 1{table QD Sertraline HCl 100 MG HCl 100 MG 0-26 t} HCl 100 MG 00:00: 00 Sertraline Sertraline 2020-1 No 1{table QD Sertraline HCl 100 MG HCl 100 MG 0-26 t} HCl 100 MG 00:00: 00 Bupivicaine Bupivicaine 2020-0 No 2.5mg Common [place] 9-21 Spirit 00:00: - [facility] Felizalog Kenalog 2020-0 No 40mg Common (Triamcinol (Triamcinol 9-21 S pirit one) one) 00:00: - [facility] Bupivicaine Bupivicaine 2020-0 No 2.5mg Common [place] - Spirit 00:00: - [facility] Kenalog Kenalog 2020-0 No 40mg Common (Triamcinol (Triamcinol 9-21 S pirit one) one) 00:00: - [facility] Bupivicaine Bupivicaine 2020-0 No 2.5mg Common [place] - Spirit 00:00: - [facility] Felizalog Kenalog 2020-0 No 40mg Common (Triamcinol (Triamcinol 9-21 S pirit one) one) 00:00: - [facility] Bupivicaine Bupivicaine 2020-0 No 2.5mg Common [place] Williamson 05-31 Spirit 00:00: - [facility] Kenalog Kenalog 2020-0 No 40mg Common (Triamcinol (Triamcinol 9-21 S pirit one) one) 00:00: - [facility] Bupivicaine Bupivicaine 2020-0 No 2.5mg Common [place] Williamson - Spirit 00:00: - [facility] Kenalog Kenalog 2020-0 No 40mg Common (Triamcinol (Triamcinol 9-21 S pirit one) one) 00:00: - [facility] Tylenol # 3 Tylenol # 3 2020- No Tylenol # 300/30mg 300/30mg 05-27 3 300/30mg 00:00: 00:00 00 :00 Tylenol # 3 Tylenol # 3 2020-2020- No Tylenol # 300/30mg 300/30mg 05-27 3 300/30mg 00:00: 00:00 00 :00 Tylenol # 3 Tylenol # 3 2020- No Tylenol # 300/30mg 300/30mg 9-17 11-15 3 300/30mg 00:00: 00:00 00 :00 Tylenol # 3 Tylenol # 3 2020-0 1- No Tylenol # 300/30mg 300/30mg -17 11-15 3 300/30mg 00:00: 00:00 00 :00 Kenalog Kenalog 2020-0 No 40mg Common (Triamcinol (Triamcinol 4-20 S pirit one) one) 00:00: - [facility] Bupivicaine Bupivicaine 2020-0 No 2.5mg Common [place] 4-20 Spirit 00:00: - [facility] Kenalog Kenalog 2020-0 No 40mg Common (Triamcinol (Triamcinol 4-20 S pirit one) one) 00:00: - [facility] Bupivicaine Bupivicaine 2020-0 No 2.5mg Common [place] 4-20 Spirit 00:00: - [facility] Kenalog Kenalog 2020-0 No 40mg Common (Triamcinol (Triamcinol 4-20 S pirit one) one) 00:00: - [facility] Bupivicaine Bupivicaine 2020-0 No 2.5mg Common [place] 4-20 Spirit 00:00: - [facility] Kenalog Kenalog 2020-0 No 40mg Common (Triamcinol (Triamcinol 4-20 S pirit one) one) 00:00: - [facility] Bupivicaine Bupivicaine 2020-0 No 2.5mg Common [place] 4-20 Spirit 00:00: - [facility] Kenalog Kenalog 2020-0 No 40mg Common (Triamcinol (Triamcinol 4-20 S pirit one) one) 00:00: - [facility] Bupivicaine Bupivicaine 2020-0 No 2.5mg Common [place] 4-20 Spirit 00:00: - [facility] Bupivicaine Bupivicaine 2019-1 No 5mg Common [place] Williamson 0-20 Spirit 00:00: - [facility] Kenalog Kenalog 2020-1 No 40mg Common (Triamcinol (Triamcinol 0-20 S pirit one) one) 00:00: - [facility] Bupivicaine Bupivicaine 2020- No 5mg Common [place] Williamson 0-20 Spirit 00:00: - [facility] Kenalog Kenalog 2020-1 No 40mg Common (Triamcinol (Triamcinol 0-20 S pirit one) one) 00:00: - [facility] Bupivicaine Bupivicaine 2019- No 5mg Common [place] Williamson 0-20 Spirit 00:00: - [facility] Kenalog Kenalog 2019- No 40mg Common (Triamcinol (Triamcinol 0-20 S pirit one) one) 00:00: - [facility] Kenalog Kenalog 2020-1 No 40mg Common (Triamcinol (Triamcinol 0-20 S pirit one) one) 00:00: - [facility] Bupivicaine Bupivicaine 2019- No 5mg Common [place] Williamson 0-20 Spirit 00:00: - [facility] Kenalog Kenalog 2019- No 40mg Common (Triamcinol (Triamcinol 0-20 S pirit one) one) 00:00: - [facility] Bupivicaine Bupivicaine 2020-1 No 5mg Common [place] Williamson 0-20 Spirit 00:00: - [facility] Bupivicaine Bupivicaine 2020-1 No 5mg Common [place] Williamson 0-13 Spirit 00:00: - [facility] Kenalog Kenalog 2020-1 No 40mg Common (Triamcinol (Triamcinol 0-13 S pirit one) one) 00:00: - [facility] Bupivicaine Bupivicaine 2020-1 No 5mg Common [place] Williamson 0-13 Spirit 00:00: - [facility] Kenalog Kenalog 2020-1 No 40mg Common (Triamcinol (Triamcinol 0-13 S pirit one) one) 00:00: - [facility] Bupivicaine Bupivicaine 2019-1 No 5mg Common [place] Williamson 0-13 Spirit 00:00: - [facility] Kenalog Kenalog 2019- No 40mg Common (Triamcinol (Triamcinol 0-13 S pirit one) one) 00:00: - [facility] Bupivicaine Bupivicaine 2020-1 No 5mg Common [place] Williamson 0-13 Spirit 00:00: - [facility] Kenalog Kenalog 2019- No 40mg Common (Triamcinol (Triamcinol 0-13 S pirit one) one) 00:00: - [facility] Bupivicaine Bupivicaine 2019-1 No 5mg Common [place] Williamson 0-13 Spirit 00:00: - [facility] Kenalog Kenalog 2019-09 No 40mg Common (Triamcinol (Triamcinol 0-13 S pirit one) one) 00:00: - [facility] Lisinopril- Lisinopril- No 1{table QD Lisinopril hydroCHLORO hydroCHLORO t} -hydroCHLO thiazide thiazide ROthiazide 20-12.5 MG 20-12.5 MG 20-12.5 MG Centrum Centrum No Centrum Silver - Silver - Silver - Folic Acid Folic Acid No 1{table QD Folic Acid 1 MG 1 MG t} 1 MG FLUoxetine FLUoxetine No FLUoxetine HCl 20 MG HCl 20 MG HCl 20 MG traZODone traZODone No traZODone HCl 100 MG HCl 100 MG HCl 100 MG HYDROcodone HYDROcodone No HYDROcodon -Acetaminop -Acetaminop e-Acetamin hen 7.5-325 hen 7.5-325 ophen MG MG 7.5-325 MG risperiDONE risperiDONE No risperiDON 1 MG 1 MG E 1 MG Vitamin D3 Vitamin D3 No Vitamin D3 710392 [id number] UNIT/GM UNIT/GM UNIT/GM Divalproex Divalproex No Divalproex Sodium 250 Sodium 250 Sodium 250 MG MG MG amLODIPine amLODIPine No 1{table QD amLODIPine Besylate 5 Besylate 5 t} Besylate 5 MG MG MG clonazePAM clonazePAM No clonazePAM 1 MG 1 MG 1 MG Keytruda Keytruda No Keytruda 100 MG/4ML 100 MG/4ML 100 MG/4ML Lisinopril- Lisinopril- No 1{table QD Lisinopril hydroCHLORO hydroCHLORO t} -hydroCHLO thiazide thiazide ROthiazide 20-12.5 MG 20-12.5 MG 20-12.5 MG Centrum Centrum No Centrum Silver - Silver - Silver - Folic Acid Folic Acid No 1{table QD Folic Acid 1 MG 1 MG t} 1 MG FLUoxetine FLUoxetine No FLUoxetine HCl 20 MG HCl 20 MG HCl 20 MG traZODone traZODone No traZODone HCl 100 MG HCl 100 MG HCl 100 MG HYDROcodone HYDROcodone No HYDROcodon -Acetaminop -Acetaminop e-Acetamin hen 7.5-325 hen 7.5-325 ophen MG MG 7.5-325 MG risperiDONE risperiDONE No risperiDON 1 MG 1 MG E 1 MG Vitamin D3 Vitamin D3 No Vitamin D3 343377 [id number] [id number] UNIT/GM UNIT/GM UNIT/GM Divalproex Divalproex No Divalproex Sodium 250 Sodium 250 Sodium 250 MG MG MG amLODIPine amLODIPine No 1{table QD amLODIPine Besylate 5 Besylate 5 t} Besylate 5 MG MG MG clonazePAM clonazePAM No clonazePAM 1 MG 1 MG 1 MG Keytruda Keytruda No Keytruda 100 MG/4ML 100 MG/4ML 100 MG/4ML amLODIPine amLODIPine No 1{table QD amLODIPine Besylate 5 Besylate 5 t} Besylate 5 MG MG MG Centrum Centrum No Centrum Silver - Silver - Silver - Keytruda Keytruda No Keytruda 100 MG/4ML 100 MG/4ML 100 MG/4ML Divalproex Divalproex No Divalproex Sodium 250 Sodium 250 Sodium 250 MG MG MG Folic Acid Folic Acid No 1{table QD Folic Acid 1 MG 1 MG t} 1 MG clonazePAM clonazePAM No clonazePAM 1 MG 1 MG 1 MG traZODone traZODone No traZODone HCl 100 MG HCl 100 MG HCl 100 MG Lisinopril- Lisinopril- No 1{table QD Lisinopril hydroCHLORO hydroCHLORO t} -hydroCHLO thiazide thiazide ROthiazide 20-12.5 MG 20-12.5 MG 20-12.5 MG HYDROcodone HYDROcodone No HYDROcodon -Acetaminop -Acetaminop e-Acetamin hen 7.5-325 hen 7.5-325 ophen MG MG 7.5-325 MG risperiDONE risperiDONE No risperiDON 1 MG 1 MG E 1 MG Vitamin D3 Vitamin D3 No Vitamin D3 162839 258200 [id number] UNIT/GM UNIT/GM UNIT/GM amLODIPine amLODIPine No 1{table QD amLODIPine Besylate 5 Besylate 5 t} Besylate 5 MG MG MG Folic Acid Folic Acid No 1{table QD Folic Acid 1 MG 1 MG t} 1 MG Vitamin D3 Vitamin D3 No Vitamin D3 739494 473604 [id number] UNIT/GM UNIT/GM UNIT/GM clonazePAM clonazePAM No clonazePAM 1 MG 1 MG 1 MG Centrum Centrum No Centrum Silver - Silver - Silver - risperiDONE risperiDONE No risperiDON 1 MG 1 MG E 1 MG Divalproex Divalproex No Divalproex Sodium 250 Sodium 250 Sodium 250 MG MG MG Lisinopril- Lisinopril- No 1{table QD Lisinopril hydroCHLORO hydroCHLORO t} -hydroCHLO thiazide thiazide ROthiazide 20-12.5 MG 20-12.5 MG 20-12.5 MG traZODone traZODone No traZODone HCl 100 MG HCl 100 MG HCl 100 MG Keytruda Keytruda No Keytruda 100 MG/4ML 100 MG/4ML 100 MG/4ML HYDROcodone HYDROcodone No HYDROcodon -Acetaminop -Acetaminop e-Acetamin hen 7.5-325 hen 7.5-325 ophen MG MG 7.5-325 MG HYDROcodone HYDROcodone No HYDROcodon -Acetaminop -Acetaminop e-Acetamin hen 7.5-325 hen 7.5-325 ophen MG MG 7.5-325 MG amLODIPine amLODIPine No 1{table QD amLODIPine Besylate 5 Besylate 5 t} Besylate 5 MG MG MG Vitamin D3 Vitamin D3 No Vitamin D3 204128 146281 [id number] UNIT/GM UNIT/GM UNIT/GM Folic Acid Folic Acid No 1{table QD Folic Acid 1 MG 1 MG t} 1 MG Centrum Centrum No Centrum Silver - Silver - Silver - risperiDONE risperiDONE No risperiDON 1 MG 1 MG E 1 MG clonazePAM clonazePAM No clonazePAM 1 MG 1 MG 1 MG Lisinopril- Lisinopril- No 1{table QD Lisinopril hydroCHLORO hydroCHLORO t} -hydroCHLO thiazide thiazide ROthiazide 20-12.5 MG 20-12.5 MG 20-12.5 MG traZODone traZODone No traZODone HCl 100 MG HCl 100 MG HCl 100 MG Keytruda Keytruda No Keytruda 100 MG/4ML 100 MG/4ML 100 MG/4ML Divalproex Divalproex No Divalproex Sodium 250 Sodium 250 Sodium 250 MG MG MG HYDROcodone HYDROcodone No HYDROcodon -Acetaminop -Acetaminop e-Acetamin hen 7.5-325 hen 7.5-325 ophen MG MG 7.5-325 MG amLODIPine amLODIPine No 1{table QD amLODIPine Besylate 5 Besylate 5 t} Besylate 5 MG MG MG Vitamin D3 Vitamin D3 No Vitamin D3 389399 [id number] [id number] UNIT/GM UNIT/GM UNIT/GM Folic Acid Folic Acid No 1{table QD Folic Acid 1 MG 1 MG t} 1 MG Centrum Centrum No Centrum Silver - Silver - Silver - risperiDONE risperiDONE No risperiDON 1 MG 1 MG E 1 MG clonazePAM clonazePAM No clonazePAM 1 MG 1 MG 1 MG Lisinopril- Lisinopril- No 1{table QD Lisinopril hydroCHLORO hydroCHLORO t} -hydroCHLO thiazide thiazide ROthiazide 20-12.5 MG 20-12.5 MG 20-12.5 MG traZODone traZODone No traZODone HCl 100 MG HCl 100 MG HCl 100 MG Keytruda Keytruda No Keytruda 100 MG/4ML 100 MG/4ML 100 MG/4ML Divalproex Divalproex No Divalproex Sodium 250 Sodium 250 Sodium 250 MG MG MG Vitamin D3 Vitamin D3 No Vitamin D3 268659 840451 [id number] UNIT/GM UNIT/GM UNIT/GM Folic Acid Folic Acid No 1{table QD Folic Acid 1 MG 1 MG t} 1 MG risperiDONE risperiDONE No risperiDON 1 MG 1 MG E 1 MG traZODone traZODone No traZODone HCl 100 MG HCl 100 MG HCl 100 MG clonazePAM clonazePAM No clonazePAM 1 MG 1 MG 1 MG Budesonide- Budesonide- No Budesonide Formoterol Formoterol -Formotero Fumarate Fumarate l Fumarate 80-4.5 80-4.5 80-4.5 MCG/ACT MCG/ACT MCG/ACT Lisinopril- Lisinopril- No 1{table QD Lisinopril hydroCHLORO hydroCHLORO t} -hydroCHLO thiazide thiazide ROthiazide 20-12.5 MG 20-12.5 MG 20-12.5 MG Centrum Centrum No Centrum Silver - Silver - Silver - HYDROcodone HYDROcodone No HYDROcodon -Acetaminop -Acetaminop e-Acetamin hen 7.5-325 hen 7.5-325 ophen MG MG 7.5-325 MG Divalproex Divalproex No Divalproex Sodium 250 Sodium 250 Sodium 250 MG MG MG Keytruda Keytruda No Keytruda 100 MG/4ML 100 MG/4ML 100 MG/4ML amLODIPine amLODIPine No 1{table QD amLODIPine Besylate 5 Besylate 5 t} Besylate 5 MG MG MG Budesonide- Budesonide- No Budesonide Formoterol Formoterol -Formotero Fumarate Fumarate l Fumarate 80-4.5 80-4.5 80-4.5 MCG/ACT MCG/ACT MCG/ACT Folic Acid Folic Acid No 1{table QD Folic Acid 1 MG 1 MG t} 1 MG risperiDONE risperiDONE No risperiDON 1 MG 1 MG E 1 MG traZODone traZODone No traZODone HCl 100 MG HCl 100 MG HCl 100 MG Divalproex Divalproex No Divalproex Sodium 250 Sodium 250 Sodium 250 MG MG MG clonazePAM clonazePAM No clonazePAM 1 MG 1 MG 1 MG Lisinopril- Lisinopril- No 1{table QD Lisinopril hydroCHLORO hydroCHLORO t} -hydroCHLO thiazide thiazide ROthiazide 20-12.5 MG 20-12.5 MG 20-12.5 MG amLODIPine amLODIPine No 1{table QD amLODIPine Besylate 5 Besylate 5 t} Besylate 5 MG MG MG HYDROcodone HYDROcodone No HYDROcodon -Acetaminop -Acetaminop e-Acetamin hen 7.5-325 hen 7.5-325 ophen MG MG 7.5-325 MG Centrum Centrum No Centrum Silver - Silver - Silver - Keytruda Keytruda No Keytruda 100 MG/4ML 100 MG/4ML 100 MG/4ML Vitamin D3 Vitamin D3 No Vitamin D3 [id number] UNIT/GM UNIT/GM UNIT/GM Budesonide- Budesonide- No Budesonide Formoterol Formoterol -Formotero Fumarate Fumarate l Fumarate 80-4.5 80-4.5 80-4.5 MCG/ACT MCG/ACT MCG/ACT Divalproex Divalproex No Divalproex Sodium 250 Sodium 250 Sodium 250 MG MG MG risperiDONE risperiDONE No risperiDON 1 MG 1 MG E 1 MG Lisinopril- Lisinopril- No 1{table QD Lisinopril hydroCHLORO hydroCHLORO t} -hydroCHLO thiazide thiazide ROthiazide 20-12.5 MG 20-12.5 MG 20-12.5 MG clonazePAM clonazePAM No clonazePAM 1 MG 1 MG 1 MG HYDROcodone HYDROcodone No HYDROcodon -Acetaminop -Acetaminop e-Acetamin hen 7.5-325 hen 7.5-325 ophen MG MG 7.5-325 MG Folic Acid Folic Acid No 1{table QD Folic Acid 1 MG 1 MG t} 1 MG traZODone traZODone No traZODone HCl 100 MG HCl 100 MG HCl 100 MG Centrum Centrum No Centrum Silver - Silver - Silver - Keytruda Keytruda No Keytruda 100 MG/4ML 100 MG/4ML 100 MG/4ML amLODIPine amLODIPine No 1{table QD amLODIPine Besylate 5 Besylate 5 t} Besylate 5 MG MG MG Vitamin D3 Vitamin D3 No Vitamin D3 [id number] [id number] UNIT/GM UNIT/GM UNIT/GM Budesonide- Budesonide- No Budesonide Formoterol Formoterol -Formotero Fumarate Fumarate l Fumarate 80-4.5 80-4.5 80-4.5 MCG/ACT MCG/ACT MCG/ACT Keytruda Keytruda No Keytruda 100 MG/4ML 100 MG/4ML 100 MG/4ML HYDROcodone HYDROcodone No HYDROcodon -Acetaminop -Acetaminop e-Acetamin hen 7.5-325 hen 7.5-325 ophen MG MG 7.5-325 MG risperiDONE risperiDONE No risperiDON 1 MG 1 MG E 1 MG clonazePAM clonazePAM No clonazePAM 1 MG 1 MG 1 MG Vitamin D3 Vitamin D3 No Vitamin D3 [id number] [id number] UNIT/GM UNIT/GM UNIT/GM Centrum Centrum No Centrum Silver - Silver - Silver - amLODIPine amLODIPine No 1{table QD amLODIPine Besylate 5 Besylate 5 t} Besylate 5 MG MG MG traZODone traZODone No traZODone HCl 100 MG HCl 100 MG HCl 100 MG Lisinopril- Lisinopril- No Lisinopril hydroCHLORO hydroCHLORO -hydroCHLO thiazide thiazide ROthiazide 20-12.5 MG 20-12.5 MG 20-12.5 MG Divalproex Divalproex No Divalproex Sodium 250 Sodium 250 Sodium 250 MG MG MG Folic Acid Folic Acid No 1{table QD Folic Acid 1 MG 1 MG t} 1 MG Budesonide- Budesonide- No Budesonide Formoterol Formoterol -Formotero Fumarate Fumarate l Fumarate 80-4.5 80-4.5 80-4.5 MCG/ACT MCG/ACT MCG/ACT Keytruda Keytruda No Keytruda 100 MG/4ML 100 MG/4ML 100 MG/4ML HYDROcodone HYDROcodone No HYDROcodon -Acetaminop -Acetaminop e-Acetamin hen 7.5-325 hen 7.5-325 ophen MG MG 7.5-325 MG risperiDONE risperiDONE No risperiDON 1 MG 1 MG E 1 MG clonazePAM clonazePAM No clonazePAM 1 MG 1 MG 1 MG Vitamin D3 Vitamin D3 No Vitamin D3 [id number] UNIT/GM UNIT/GM UNIT/GM Centrum Centrum No Centrum Silver - Silver - Silver - amLODIPine amLODIPine No 1{table QD amLODIPine Besylate 5 Besylate 5 t} Besylate 5 MG MG MG traZODone traZODone No traZODone HCl 100 MG HCl 100 MG HCl 100 MG Lisinopril- Lisinopril- No Lisinopril hydroCHLORO hydroCHLORO -hydroCHLO thiazide thiazide ROthiazide 20-12.5 MG 20-12.5 MG 20-12.5 MG Divalproex Divalproex No Divalproex Sodium 250 Sodium 250 Sodium 250 MG MG MG Folic Acid Folic Acid No 1{table QD Folic Acid 1 MG 1 MG t} 1 MG Immunizations Ordered Immunization Filled Immunization Date Status Commen ts Source Name Name Terix - Flucnaborvax - 2021-07-05 [facility] 13:53:00 - [facility] Flucelvax - Flucelvax - 2021-07-05 Completed [facility] multidose [facility]ial multidose vial 13:53:00 - [facility] Flucelvax - Flucelvax - 2021-07-05 Completed [facility] multidose [facility]ial multidose vial 13:53:00 - [facility] Flucelvax - Flucelvax - 2021-07-05 Completed [facility]ose [facility]ial multidose vial 13:53:00 - [facility] Flucelvax - Flucelvax - 2021-07-05 Completed [facility] multidose [facility]ial multidose vial 13:53:00 - [facility] Flucelvax - Flucelvax - 2021-07-05 Completed [facility] multidose [facility]ial multidose vial 13:53:00 - [facility] Flucelvax - Flucelvax - 2021-07-05 Completed [facility]ose [facility]ial multidose vial 13:53:00 - [facility] Flucelvax - Flucelvax - 2021-07-05 Completed [facility] multidose [facility]ial multidose vial 13:53:00 - [facility] Flucelvax - Flucelvax - 2021-07-05 Completed [facility]ose [facility]ial multidose vial 13:53:00 [facility] Bupivicaine Williamson Bupivicaine Williamson 2021-05-31 Completed [facility] 16:45:00 - [facility] Bupivicaine Williamson Bupivicaine Williamson 2021-05-31 Completed [facility] 16:45:00 - [facility] Bupivicaine Williamson Bupivicaine Williamson 2021-05-31 Completed [facility] 16:45:00 - [facility] Bupivicaine Williamson Bupivicaine Williamson 2021-05-31 Completed [facility] 16:45:00 [facility] Kenalog Kenalog 2021-05-31 Completed [facility] (Triamcinolone) (Triamcinolone) 16:44:00 [facility] Kenalog Kenalog 2021-05-31 Completed [facility] (Triamcinolone) (Triamcinolone) 16:44:00 - [facility] Izabella Parekh 2021-05-31 Completed [facility] (Triamcinolone) (Triamcinolone) 16:44:00 - [facility] Izabella Parekh 2021-05-31 Completed [facility] (Triamcinolone) (Triamcinolone) 16:44:00 - [facility] Bupivicaine Williamson Bupivicaine Williamson 2020-12-28 Completed [facility] 10:05:00 - [facility] Izabella Parekh 2020-12-28 Completed [facility] (Triamcinolone) (Triamcinolone) 10:05:00 - [facility] Bupivicaine Williamson Bupivicaine Williamson 2020-12-28 Completed [facility] 10:05:00 - [facility] Izabella Parekh 2020-12-28 Completed [facility] (Triamcinolone) (Triamcinolone) 10:05:00 - [facility] Bupivicaine Williamson Bupivicaine Williamson 2020-12-28 Completed [facility] 10:05:00 - [facility] Izabella Parekh 2020-12-28 Completed [facility] (Triamcinolone) (Triamcinolone) 10:05:00 - [facility] Bupivicaine Williamson Bupivicaine Williamson 2020-12-28 Completed [facility] 10:05:00 - [facility] Izabella Parekh 2020-12-28 Completed [facility] (Triamcinolone) (Triamcinolone) 10:05:00 - [facility] COVID-19 Vaccine COVID-19 Vaccine 2020-12-15 Completed [facility] (Madison) (Madison) 14:49:00 - [facility] COVID-19 Vaccine COVID-19 Vaccine 2020-12-15 Completed [facility] (Madison) (Madison) 14:49:00 - [facility] COVID-19 Vaccine COVID-19 Vaccine 2020-12-15 Completed [facility] (Madison) (Madison) 14:49:00 - [facility] COVID-19 Vaccine COVID-19 Vaccine 2020-12-15 Completed [facility] (Madison) (Madison) 14:49:00 - [facility] COVID-19 Vaccine COVID-19 Vaccine 2020-12-15 Completed [facility] (Madison) (Madison) 14:49:00 - [facility] COVID-19 Vaccine COVID-19 Vaccine 2020-12-15 Completed [facility] (Madison) (Madison) 14:49:00 - [facility] COVID-19 Vaccine COVID-19 Vaccine 2020-12-15 Completed [facility] (Madison) (Madison) 14:49:00 - [facility] COVID-19 Vaccine COVID-19 Vaccine 2020-12-15 Completed [facility] (Madison) (Madison) 14:49:00 - [facility] Bupivicaine Williamson Bupivicaine Williamson 2020-06-29 Completed [facility] 09:24:00 - [facility] Kenalog Kenalog 2020-06-29 Completed [facility] (Triamcinolone) (Triamcinolone) 09:24:00 - [facility] Bupivicaine Williamson Bupivicaine Williamson 2020-06-29 Completed [facility] 09:24:00 - [facility] Kenalog Kenalog 2020-06-29 Completed [facility] (Triamcinolone) (Triamcinolone) 09:24:00 - [facility] Bupivicaine Williamson Bupivicaine Williamson 2020-06-29 Completed [facility] 09:24:00 - [facility] Kenalog Kenalog 2020-06-29 Completed [facility] (Triamcinolone) (Triamcinolone) 09:24:00 - [facility] Bupivicaine Williamson Bupivicaine Williamson 2020-06-29 Completed [facility] 09:24:00 - [facility] Kenalog Kenalog 2020-06-29 Completed [facility] (Triamcinolone) (Triamcinolone) 09:24:00 - [facility] Bupivicaine Williamson Bupivicaine Williamson 2020-06-22 Completed [facility] 11:43:00 - [facility] Bupivicaine Williamson Bupivicaine Williamson 2020-06-22 Completed [facility] 11:43:00 - [facility] Bupivicaine Williamson Bupivicaine Williamson 2020-06-22 Completed [facility] 11:43:00 - [facility] Bupivicaine Williamson Bupivicaine Williamson 2020-06-22 Completed [facility] 11:43:00 - [facility] Kenalog Kenalog 2020-06-22 Completed [facility] (Triamcinolone) (Triamcinolone) 11:42:00 - [facility] Kenalog Kenalog 2020-06-22 Completed [facility] (Triamcinolone) (Triamcinolone) 11:42:00 - [facility] Kenalog Kenalog 2020-06-22 Completed [facility] (Triamcinolone) (Triamcinolone) 11:42:00 - [facility] Kenalog Kenalog 2020-06-22 Completed [facility] (Triamcinolone) (Triamcinolone) 11:42:00 - [facility] Prevnar 13 Prevnar 13 2020-04-12 Completed [facility] -Pneumonia Vaccine -Pneumonia Vaccine 22:16:00 - [facility] Prevnar 13 Prevnar 13 2020-04-12 Completed [facility] -Pneumonia Vaccine -Pneumonia Vaccine 22:16:00 - [facility] Prevnar 13 Prevnar 13 2020-04-12 Completed [facility] -Pneumonia Vaccine -Pneumonia Vaccine 22:16:00 - [facility] Prevnar 13 Prevnar 13 2020-04-12 Completed [facility] -Pneumonia Vaccine -Pneumonia Vaccine 22:16:00 - [facility] Prevnar 13 Prevnar 13 2020-04-12 Completed [facility] -Pneumonia Vaccine -Pneumonia Vaccine 22:16:00 - [facility] Prevnar 13 Prevnar 13 2020-04-12 Completed [facility] -Pneumonia Vaccine -Pneumonia Vaccine 22:16:00 - [facility] Prevnar 13 Prevnar 13 2020-04-12 Completed [facility] -Pneumonia Vaccine -Pneumonia Vaccine 22:16:00 - [facility] Prevnar 13 Prevnar 13 2020-04-12 Completed [facility] -Pneumonia Vaccine -Pneumonia Vaccine 22:16:00 - [facility] Prevnar 13 Prevnar 13 2020-04-12 Completed [facility] -Pneumonia Vaccine -Pneumonia Vaccine 22:16:00 - [facility] Prevnar 13 Prevnar 13 2020-04-12 Completed [facility] -Pneumonia Vaccine -Pneumonia Vaccine 22:16:00 - [facility] Prevnar 13 Prevnar 13 2020-04-12 Completed [facility] -Pneumonia Vaccine -Pneumonia Vaccine 22:16:00 - [facility] Vital Signs Vital Name Observation Time Observation Value Comments Source height 2022-05-23 14:20:00 69 [in_i] [facility] weight 2022-05-23 14:20:00 188.4 [lb_av] [facility] temperature 2022-05-23 14:20:00 97.3 [degF] [facility] bmi 2022-05-23 14:20:00 27.82 kg/m2 [facility] oximetry 2022-05-23 14:20:00 66 % [facility] respiratory rate 2022-05-23 14:20:00 16 /min Comm on [facility] blood pressure 2022-05-23 14:20:00 83 mm[Hg] [facility] - systolic [facility] blood pressure 2022-05-23 14:20:00 56 mm[Hg] [facility] - diastolic [facility] height 2022-05-23 10:00:00 69 [in_i] [facility] weight 2022-05-23 10:00:00 187 [lb_av] [facility] temperature 2022-05-23 10:00:00 97.2 [degF] [facility] bmi 2022-05-23 10:00:00 27.61 kg/m2 [facility] blood pressure 2022-05-23 10:00:00 112 mm[Hg] [facility] - systolic [facility] blood pressure 2022-05-23 10:00:00 64 mm[Hg] [facility] - diastolic [facility] height 2022-04-25 14:40:00 69 [in_i] [facility] 2022-04-25 14:40:00 191 [lb_av] [facility] temperature 2022-04-25 14:40:00 97.4 [degF] [facility] bmi 2022-04-25 14:40:00 28.2 kg/m2 [facility] oximetry 2022-04-25 14:40:00 94 % [facility] respiratory rate 2022-04-25 14:40:00 16 /min Comm on [facility] blood pressure 2022-04-25 14:40:00 140 mm[Hg] [facility] - systolic [facility] blood pressure 2022-04-25 14:40:00 90 mm[Hg] [facility] - diastolic [facility] height 2022-01-03 14:40:00 69 [in_i] [facility] weight 2022-01-03 14:40:00 197 [lb_av] [facility] temperature 2022-01-03 14:40:00 97.7 [degF] [facility] bmi 2022-01-03 14:40:00 29.09 kg/m2 [facility] oximetry 2022-01-03 14:40:00 94 % [facility] respiratory rate 2022-01-03 14:40:00 16 /min Comm on [facility] blood pressure 2022-01-03 14:40:00 148 mm[Hg] [facility] - systolic [facility] blood pressure 2022-01-03 14:40:00 82 mm[Hg] [facility] - diastolic [facility] height 2021-10-05 13:00:00 69 [in_i] [facility] weight 2021-10-05 13:00:00 189 [lb_av] [facility] temperature 2021-10-05 13:00:00 98.1 [degF] [facility] bmi 2021-10-05 13:00:00 27.91 kg/m2 [facility] oximetry 2021-10-05 13:00:00 94 % [facility] respiratory rate 2021-10-05 13:00:00 16 /min Comm on [facility] blood pressure 2021-10-05 13:00:00 142 mm[Hg] [facility] - systolic [facility] blood pressure 2021-10-05 13:00:00 84 mm[Hg] [facility] - diastolic [facility] height 2021-10-04 15:00:00 69 [in_i] [facility] weight 2021-10-04 15:00:00 187 [lb_av] [facility] temperature 2021-10-04 15:00:00 97.4 [degF] [facility] bmi 2021-10-04 15:00:00 27.61 kg/m2 [facility] blood pressure 2021-10-04 15:00:00 136 mm[Hg] [facility] - systolic [facility] blood pressure 2021-10-04 15:00:00 84 mm[Hg] [facility] - diastolic [facility] height 2021-07-05 13:20:00 69 [in_i] [facility] weight 2021-07-05 13:20:00 187 [lb_av] [facility] temperature 2021-07-05 13:20:00 98.8 [degF] [facility] bmi 2021-07-05 13:20:00 27.61 kg/m2 [facility] oximetry 2021-07-05 13:20:00 96 % [facility] respiratory rate 2021-07-05 13:20:00 16 /min Comm on [facility] blood pressure 2021-07-05 13:20:00 108 mm[Hg] [facility] - systolic [facility] blood pressure 2021-07-05 13:20:00 73 mm[Hg] [facility] - diastolic [facility] height 2021-05-31 15:15:00 69 [in_i] [facility] weight 2021-05-31 15:15:00 187 [lb_av] [facility] - [facility] bmi 2021-05-31 15:15:00 27.61 kg/m2 [facility] - [facility] blood pressure 2021-05-31 15:15:00 103 mm[Hg] [facility] - systolic [facility] blood pressure 2021-05-31 15:15:00 86 mm[Hg] [facility] - diastolic [facility] height 2021-05-27 13:40:00 69 [in_i] [facility] - [facility] weight 2021-05-27 13:40:00 187 [lb_av] [facility] - [facility] temperature 2021-05-27 13:40:00 98.6 [degF] [facility] bmi 2021-05-27 13:40:00 27.61 kg/m2 [facility] S [facility] oximetry 2021-05-27 13:40:00 95 % [facility] respiratory rate 2021-05-27 13:40:00 16 /min Comm on [facility] - [facility] blood pressure 2021-05-27 13:40:00 92 mm[Hg] [facility] - systolic [facility] blood pressure 2021-05-27 13:40:00 57 mm[Hg] [facility] - diastolic [facility] Procedures This patient has no known procedures. Encounters Start End Encounter Admission Attending Care Care Encounter Source Date/Time Date/Time Type Type Clinicians Facility Department ID 2022-05-23 Outpatient HAFSA Ortega [facility] [id number] Common 10:03:01 Anitra [id number] [facility] 2022-05-22 Outpatient [place], STLMLC STLMLC [id number] Common 12:07:01 Anitra [facility] 2022-05-19 Outpatient [place], STLMLC STLMLC [id number] Common 10:23:01 Antira [facility] 2022-04-21 Outpatient [place], STLMLC STLMLC [id number] Common 09:14:00 Anitra [facility] 2022-03-20 Outpatient [place], STLMLC STLMLC [id number] Common 15:49:01 Anitra [facility] 2021-12-05 Outpatient [place], STLMLC STLMLC [id number] Common 15:17:02 Anitra [facility] 2021-11-02 Outpatient [place], STLMLC STLMLC [id number] Common 14:45:06 Anitra [facility] 2021-10-05 Outpatient [place], STLMLC STLMLC [id number] Common 14:40:33 Anitra [facility] 2021-10-05 Outpatient [place], STLMLC STLMLC [id number] Common 14:40:14 Anitra [facility] 2021-10-05 Outpatient [place], STLMLC STLMLC [id number] Common 14:36:52 Anitra [facility] 2021-10-05 Outpatient [place], STLMLC STLMLC [id number] Common 14:16:31 Anitra [id number] [facility] 2021-10-05 Outpatient [place], STLMLC STLMLC [id number] Common 14:05:54 Anitra 13781 [facility] 2021-10-05 Outpatient [place], STLMLC STLMLC [id number] Common 13:48:34 Anitra 97829 [facility] 2021-10-05 Outpatient [place], STLMLC STLMLC [id number] Common 12:54:01 Anitra 75748 [facility] 2021-10-05 Outpatient [place], STLMLC STLMLC [id number] Common 12:51:34 Anitra 11575 [facility] 2021-10-05 Outpatient [place], STLMLC STLMLC [id number] Common 12:33:50 Anitra 82793 [facility] 2021-10-05 Outpatient [place], STLMLC STLMLC [id number] Common 12:28:15 Anitra 62734 [facility] 2021-10-05 Outpatient [place], STLMLC STLMLC [id number] Common 12:17:12 Anitra 95614 [facility] 2021-10-05 Outpatient [place], STLMLC STLMLC [id number] Common 12:15:31 Anitra 99264 [facility] 2021-10-05 Outpatient [place], STLMLC STLMLC [id number] Common 12:10:53 Anitra 37216 [facility] 2021-10-05 Outpatient [place], STLMLC STLMLC [id number] Common 12:04:46 Anitra 80213 [facility] 2021-10-05 Outpatient [place], STLMLC STLMLC [id number] Common 11:56:25 Anitra 97569 [facility] 2021-10-05 Outpatient [place], STLMLC STLMLC [id number] Common 11:54:39 Anitra 50704 [facility] 2022-05-23 2022-05-23 OFFICE ST[facility]C STL[facility]C [id number] Co mmon 00:00:00 00:00:00 VISIT EST Sp[facility] it PT LEVEL 3 - [facility] 2022-05-23 2022-05-23 OFFICE STLMLC STLMLC [id number] Co mmon 00:00:00 00:00:00 [facility] ESTAB PT - [facility] LEVEL 4 [facility] 2022-04-25 2022-04-25 OFFICE STLMLC STLMLC [id number] Co m[facility] 00:00:00 00:00:00 [facility] ESTAB PT - [facility] L[facility] 4 [facility] 2022-04-10 2022-04-10 (TEL) STLMLC STLMLC [id number] [facility] 00:00:00 00:00:00 [facility] - [facility] 2022-01-03 2022-01-03 OFFICE STLMLC STLMLC [id number] Co mmon 00:00:00 00:00:00 [facility] ESTAB PT - [facility] L[facility] 2021-10-05 2021-10-05 OFFICE ST[facility]C STLMLC [id number] [facility] 00:00:00 00:00:00 [facility] ESTAB PT - [facility] L[facility] 4 [facility] 2021-10-04 2021-10-04 OFFICE STLMLC STLMLC [id number] [facility] 00:00:00 00:00:00 [facility] ESTAB PT - [facility] L[facility] 4 [facility] 2021-07-07 2021-07-07 (TEL) STLMLC STLMLC [id number] Co mmon 00:00:00 00:00:00 [facility] 2021-07-05 2021-07-05 PREV VISIT STLMLC STLMLC [id number] Common 00:00:00 00:00:00 EST [facility] 40-64 - [facility] 2021-05-31 2021-05-31 OFFICE STLMLC STLMLC [id number] Co mmon 00:00:00 00:00:00 [facility] ESTAB PT - [facility] L[facility] 4 [facility] 2021-05-27 2021-05-27 OFFICE STL[facility]C STLMLC [id number] Co mmon 00:00:00 00:00:00 VISIT EST [facility] it PT LEVEL 3 - [facility] 2021-01-13 2021-01-13 Outpatient STLMLC STL[facility]C [id number] Common 00:00:00 00:00:00 [facility] 2020-12-28 2020-12-28 Outpatient STLMLC STL[facility]C [id number] Common 00:00:00 00:00:00 [facility] 2020-12-28 2020-12-28 Outpatient STLMLC ST[facility]C [id number] Common 00:00:00 00:00:00 [facility] 2020-12-13 2020-12-13 Outpatient JERRY UMANA PUL [id number] [facility] 11:06:00 23:59:00 GINA 2020-12-09 2020-12-09 Outpatient STLMLC STL[facility]C [id number] Common 00:00:00 00:00:00 [facility] 2020-12-06 2020-12-06 Outpatient STLMLC STL[facility]C [id number] Common 00:00:00 00:00:00 [facility] 2020-11-19 2020-11-19 Outpatient STLMLC STL[facility]C [id number] Common 00:00:00 00:00:00 [facility] 2020-11-18 2020-11-18 Outpatient STLMLC STL[facility]C [id number] Common 00:00:00 00:00:00 [facility] 2020-11-11 2020-11-11 Outpatient [facility]C STL[facility]C [id number] Common 00:00:00 00:00:00 [facility] 2020-11-04 2020-11-04 Outpatient [facility]C ST[facility]C [id number] Common 00:00:00 00:00:00 [facility] 2020-11-01 2020-11-01 Outpatient [facility]MLC ST[facility]C [id number] Common 00:00:00 00:00:00 [facility] 2020-11-01 2020-11-01 Outpatient [facility] ST[facility]C [id number] Common 00:00:00 00:00:00 [facility] 2020-11-01 2020-11-01 Outpatient [facility]C STL[facility]C [id number] Common 00:00:00 00:00:00 [facility] 2020-10-20 2020-10-20 Outpatient STLMLC STL[facility]C [id number] Common 00:00:00 00:00:00 [facility] 2020-10-19 2020-10-19 Outpatient STLMLC STLMLC [id number] Common 00:00:00 00:00:00 [facility] 2020-10-06 2020-10-06 Outpatient ST[facility]C ST[facility]C [id number] Common 00:00:00 00:00:00 [facility] 2020-09-30 2020-09-30 Outpatient STLMLC STL[facility]C [id number] Common 00:00:00 00:00:00 [facility] 2020-09-29 2020-09-29 Outpatient STL[facility]C STL[facility]C [id number] Common 00:00:00 00:00:00 [facility] 2020-09-29 2020-09-29 Outpatient [facility]C STL[facility]C [id number] Common 00:00:00 00:00:00 [facility] 2020-09-20 2020-09-20 Outpatient STLMLC STL[facility]C [id number] Common 00:00:00 00:00:00 [facility] 2020-09-07 2020-09-07 Outpatient [facility] ST[facility]C [id number] Common 00:00:00 00:00:00 [facility] 2020-09-06 2020-09-06 Outpatient [facility]C ST[facility]C [id number] Common 00:00:00 00:00:00 [facility] 2020-08-16 2020-08-16 Outpatient [facility]C STL[facility]C [id number] Common 00:00:00 00:00:00 [facility] 2020-07-26 2020-07-26 Outpatient STL[facility]C STL[facility]C [id number] Common 00:00:00 00:00:00 [facility] 2020-06-29 2020-06-29 Outpatient [facility]C STL[facility]C [id number] Common 00:00:00 00:00:00 [facility] 2020-06-22 2020-06-22 Outpatient STLMLC STLMLC [id number] Common 00:00:00 00:00:00 [facility] Results This patient has no known results.
[2022-08-06] MEDS ORDERED: SMZ./TMP. 800/160 MG TABLET ONE (14:42)
[2022-08-06] MEDS ORDERED: DOXYCYCLINE 100 MG CAP PO ONE (14:42)
[2022-08-06] MEDS ORDERED: TETANUS & DIPHTHERIA TOX,ADULT 0.5 ML VIAL ONE (14:43)
--- NOTE | 2022-08-06 15:35 | EDPHYS ---
Physician Documentation [facility] Name: Efren Schuster Age: 57 yrs Sex: Male : 1965 Arrival Date: 08/06/2022 Time: 13:55 Bed 12 Private MD: ED Physician Jr Lobo HPI: 08/06 14:25 This 57 yrs old Male presents to ER via Ambulatory with complaints of Arm Injury. jmm 14:25 The patient or guardian complains of pain. Onset: The symptoms/episode began/occurred jmm gradually. This is a 57 year old male with no chronic medical conditions that presents to the ED with complaints of right forearm pain and swelling. Patient cut his arm against a stair case. Denies fever, denies purulent drainage. . Historical: - Allergies: 14:22 No Known Allergies; kb3 - Home Meds: 14:22 lisinopril-hydrochlorothiazide 20-12.5 mg oral tab 1 tab once daily [Active]; kb3 sertraline 150 mg oral cap 1 cap once daily [Active]; clonazepam 1 mg Oral tab as needed [Active]; meloxicam 7.5 mg oral tab 2 tabs once daily [Active]; gabapentin 300 mg oral Tb24 1 tab once daily [Active]; trazodone 100 mg Oral tab 1 tab once daily [Active]; - PMHx: 14:22 Hypertensive disorder; Depressive disorder; Osteoarthritis; Insomnia; kb3 - Immunization history:: Adult Immunizations up to date, Client reports receiving the 2nd dose of the Covid vaccine, Last tetanus immunization: unknown. - Social history:: Smoking status: Patient denies any tobacco usage or history of. ROS: 14:25 Constitutional: Negative for fever, chills, and weight loss, Cardiovascular: Negative jmm for chest pain, palpitations, and edema, Respiratory: Negative for shortness of breath, cough, wheezing, and pleuritic chest pain. Exam: 14:25 Constitutional: This is a well developed, well nourished patient who is awake, alert, jmm and in no acute distress. Head/Face: atraumatic. Eyes: EOMI, no conjunctival erythema appreciated ENT: Moist Mucus Membranes Neck: Trachea midline, Supple Chest/axilla: Normal chest wall appearance and motion. Cardiovascular: Regular rate and rhythm. No edema appreciated Respiratory: Normal respirations, no respiratory distress appreciated Abdomen/GI: Non distended Back: Normal ROM 14:25 Musculoskeletal/extremity: full radial pulse noted to the . 14:25 Skin: erythema and induration appreciated to the right forearm swelling appreciated, ttp. Vital Signs: 14:19 BP 132 / 112; Pulse 69; Resp 20; Temp 98.9; Pulse Ox 96% ; Weight 86.18 kg; Height 5 kb3 ft. 8 in. (172.72 cm); Pain 7/10; 14:19 Body Mass Index 28.89 (86.18 kg, 172.72 cm) kb3 MDM: 14:25 Patient medically screened. [facility] 15:33 Data reviewed: vital signs, nurses notes. Counseling: I had a detailed discussion with zainab the patient and/or guardian regarding: the historical points, exam findings, and any diagnostic results supporting the discharge/admit diagnosis, the need for outpatient follow up, to return to the emergency department if symptoms worsen or persist or if there are any questions or concerns that arise at home. Administered Medications: 14:47 Drug: Tetanus-Diphtheria Toxoid Adult 0.5 ml {Prize Jacker: [employer]. Exp: kb3 01/14/2024. Lot #: [id number]. } Route: IM; Site: left deltoid; 15:51 Follow up: Response: No adverse reaction hb 14:48 Drug: Bactrim (trimethoprim-sulfamethoxazole) (160 mg-800 mg (DS) 1 tablet Route: PO; kb3 15:51 Follow up: Response: No adverse reaction hb 14:48 Drug: Doxycycline 100 mg Route: PO; kb3 15:51 Follow up: Response: No adverse reaction hb 15:49 Drug: traMADol 50 mg Route: PO; hb 15:51 Follow up: Response: No adverse reaction hb Disposition: 17:12 Co-signature as Attending Physician, Jr BELLO was immediately available on-site ms3 in the Emergency Department for consultation in the care of the patient. Disposition Summary: 08/06/22 15:34 Discharge Ordered Location: Home [facility] Condition: Stable [facility] Diagnosis - Cellulitis of right upper limb [facility] Followup: [facility] - With: Private Physician - When: 2 - 3 days - Reason: Recheck today's complaints, Continuance of care, Re-evaluation by your physician Discharge Instructions: - Discharge Summary Sheet [facility] - Cellulitis, Adult [facility] Forms: - Medication Reconciliation Form [facility] - Thank You Letter [facility] - Antibiotic Education [facility] - Prescription Opioid Use [facility] Prescriptions: - Doxycycline Hyclate 100 mg Oral Tablet - take 1 tablet by ORAL route every 12 hours; 20 tablet; Refills: 0, Product [facility] Selection Permitted - Bactrim DS 800-160 mg Oral Tablet - take 1 tablet by ORAL route every 12 hours for 10 days; 20 tablet; Refills: 0, [facility] Product Selection Permitted - Ultracet 37.5-325 mg Oral Tablet - take 1 tablet by ORAL route every 6 hours - for up to 5 days; do not exceed 8 jmm tablets per day.; 12 tablet; Refills: 0, Product Selection Permitted Signatures: Anthony Dowling PA PA jmm Baxter, Heather, RN RN rJ Lobo DO DO ms3 Susi Pineda RN RN kb3
--- NOTE | 2022-08-06 15:35 | ER ---
Nurse's Notes [facility] Name: Efren Schuster Age: 57 yrs Sex: Male : 1965 Arrival Date: 08/06/2022 Time: 13:55 Bed 12 Private MD: Diagnosis: Cellulitis of right upper limb Presentation: 08/06 14:19 Chief complaint: Patient states: he cut his right forearm on the staircase on Sunday. kb3 Reports increased redness and swelling x2 days to right forearm and hand. Coronavirus screen: Vaccine status: Patient reports receiving the 2nd dose of the covid vaccine. Client denies travel out of the [place] in the last 14 days. Ebola Screen: Patient negative for fever greater than or equal to 101.5 degrees Fahrenheit, and additional compatible Ebola Virus Disease symptoms Patient denies exposure to infectious person. Patient denies travel to an Ebola-affected area in the 21 days before illness onset. Initial Sepsis Screen: Does the patient meet any 2 criteria? No. Patient's initial sepsis screen is negative. Does the patient have a suspected source of infection? No. Patient's initial sepsis screen is negative. Risk Assessment: Do you want to hurt yourself or someone else? Patient reports no desire to harm self or others. Onset of symptoms was July 31, 2022. 14:19 Method Of Arrival: Ambulatory 3 14:19 Acuity: FREDERIC 3 kb3 Triage Assessment: 14:22 General: Appears in no apparent distress. Behavior is calm, cooperative. Pain: kb3 Complains of pain in dorsal aspect of right forearm Pain does not radiate. Pain currently is 8 out of 10 on a pain scale. Quality of pain is described as burning. Historical: - Allergies: 14:22 No Known Allergies; kb3 - Home Meds: 14:22 lisinopril-hydrochlorothiazide 20-12.5 mg oral tab 1 tab once daily [Active]; kb3 sertraline 150 mg oral cap 1 cap once daily [Active]; clonazepam 1 mg Oral tab as needed [Active]; meloxicam 7.5 mg oral tab 2 tabs once daily [Active]; gabapentin 300 mg oral Tb24 1 tab once daily [Active]; trazodone 100 mg Oral tab 1 tab once daily [Active]; - PMHx: 14:22 Hypertensive disorder; Depressive disorder; Osteoarthritis; Insomnia; kb3 - Immunization history:: Adult Immunizations up to date, Client reports receiving the 2nd dose of the Covid vaccine, Last tetanus immunization: unknown. - Social history:: Smoking status: Patient denies any tobacco usage or history of. Screenin:30 Abuse screen: Denies threats or abuse. Denies injuries from another. Nutritional kb3 screening: No deficits noted. Tuberculosis screening: No symptoms or risk factors identified. Fall Risk None identified. Assessment: 14:30 General: See triage note. kb3 15:52 Reassessment: Patient appears in no apparent distress at this time. Patient and/or hb family updated on plan of care and expected duration. Pain level reassessed. Patient is alert, oriented x 3, equal unlabored respirations, skin warm/dry/pink. Vital Signs: 14:19 BP 132 / 112; Pulse 69; Resp 20; Temp 98.9; Pulse Ox 96% ; Weight 86.18 kg; Height 5 kb3 ft. 8 in. (172.72 cm); Pain 7/10; 14:19 Body Mass Index 28.89 (86.18 kg, 172.72 cm) kb3 ED Course: 13:55 Patient arrived in ED. jl7 14:00 Anthony Dowling PA is PHCP. [facility] 14:00 Jr Lobo DO is Attending Physician. [facility] 14:22 Triage completed. kb3 14:22 Arm band placed on left wrist. kb3 14:30 Patient has correct armband on for positive identification. Moved to room 12. kb3 14:30 No provider procedures requiring assistance completed. Patient did not have IV access kb3 during this emergency room visit. 15:48 Salome Melo, RN is Primary Nurse. 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 Exp: kb3 01/14/2024. Lot #: [id number]. } Route: IM; Site: left deltoid; 15:51 Follow up: Response: No adverse reaction hb 14:48 Drug: Bactrim (trimethoprim-sulfamethoxazole) (160 mg-800 mg (DS) 1 tablet Route: PO; kb3 15:51 Follow up: Response: No adverse reaction hb 14:48 Drug: Doxycycline 100 mg Route: PO; kb3 15:51 Follow up: Response: No adverse reaction hb 15:49 Drug: traMADol 50 mg Route: PO; hb 15:51 Follow up: Response: No adverse reaction hb Medication: 14:30 VIS not applicable for this client. kb3 Outcome: 15:34 Discharge ordered by MD. lamb 15:52 Discharged to home hb 15:52 Condition: stable 15:52 Discharge instructions given to patient, Instructed on discharge instructions, follow up and referral plans. medication usage, Demonstrated understanding of instructions, follow-up care, medications, Prescriptions given X 2. 15:52 Patient left the ED. hb Signatures: Anthony Dowling PA PA jmm Baxter, Heather, RN RN Renny Roberts RN RN jl7 Susi Pineda, RN RN kb3
[2022-08-06] MEDS ORDERED: TRAMADOL HCL 50 MG TAB ONE (15:48)
[2022-08-06 15:56] VITALS: BP 132/112; TEMP 98.9; O2SAT 96
== END 2022-08-06 15:52 | disposition home or self-care (01) ==
LOC: ER 13:53
DX: L03.113 Cellulitis of right upper limb (principal); I10 Essential (primary) hypertension; F32.A Depression, unspecified; Z23 Encounter for immunization
CPT/HCPCS: 90471; 90714; 99283

== ENCOUNTER 2024-04-22 00:29 | Inpatient (IN) | payer MEDICARE, OTHER ==
[2024-04-22] MEDS ORDERED: PIPERACIL/TAZO 3.375 GM VIAL IV ONE (01:55)
[2024-04-22] MEDS ORDERED: guaiFENesin 100 MG/5 ML UCUP ONE ×2 (01:55→02:43)
[2024-04-22] MEDS ORDERED: VANCOMYCIN 1 GM/VIAL ONE ×2 (01:55→03:54)
[2024-04-22] MEDS ORDERED: ACETAMINOPHEN 500 MG TAB ONE (01:55)
[2024-04-22] MEDS ORDERED: NA CHLORIDE 0.9% 100 ML ONE (01:56)
[2024-04-22] MEDS ORDERED: NA CHLORIDE 0.9% 2,000 ML ONE (01:56)
[2024-04-22 02:30] LABS: Absolute Lymphocytes (CBC) 0.5 K/uL (0.7-4.9); Absolute Monocytes 1.8 K/uL (0.1-1.3); Basophils % 0.3 % (0-1.3); Eosinophils % 0.3 % (0-4.4); Hematocrit 41.2 % (39.6-49.0); Hemoglobin 13.9 g/dL (13.6-17.9); Lymphocytes % 4.3 % (15.3-44.8); MCH 31.5 pg (27.0-35.0); MCHC 33.8 g/dL (32.0-36.0); MCV 93.1 fL (80-100); MPV 9.3 fL (7.6-11.3); Monocytes % 15.8 % (3.3-12.3); Neutrophils % 79.3 % (41.7-73.7); Platelets 198 thou/uL (152-406); RBC Red Blood Cell Count 4.42 M/uL (4.33-5.43); Red Cell Distribution Width 14.3 % (12.1-15.2)
[2024-04-22 02:31] LABS: Arterial Blood Carboxyhemoglob 1.5 % (0-1.5); Blood Gas Oxyhemoglobin 89.1 % (94-97); Blood Gas THB 13.3 g/dl (12-18)
[2024-04-22] MEDS ORDERED: MORPHINE 2 MG/ML SYR ONE (02:31)
[2024-04-22 02:38] LABS: PTT, Activated Partial Thromb 32.5 SECONDS (24.3-36.9); Protime INR 1.17
[2024-04-22 02:39] LABS: SARS-CoV-2 Antigen CONTROL BLUE LINE VIS/BG OK; SARS-CoV-2 Antigen Rapid Res Negative (Negative)
[2024-04-22 02:47] LABS: Albumin 3.3 g/dL (3.4-5.0); Albumin/Globulin Ratio 0.8 (1.1-1.8); Anion Gap 9.5 mEq/L (5.0-15.0); Bilirubin Total 0.6 mg/dL (0.2-1.0); Globulin 4.1 g/dL (2.3-3.5); Potassium 3.5 mEq/L (3.5-5.1); Protein, Total 7.4 g/dL (6.4-8.2); Troponin High Sensitivity 34.8 pg/mL (<58.9)
[2024-04-22] MEDS ORDERED: NA CHLORIDE 0.9% 0 ML ONE (02:56)
[2024-04-22] MEDS ORDERED: IBUPROFEN 200 MG TAB PO ONE (02:58)
[2024-04-22] MEDS ORDERED: NA CHLORIDE 0.9% 1,000 ML ONE (03:17)
[2024-04-22] MEDS ORDERED: NA CHLORIDE 3% 500 ML ONE (03:55)
--- NOTE | 2024-04-22 05:42 | ER ---
Nurse's Notes [facility] Name: Efren Schuster Age: 58 yrs Sex: Male : 1965 Arrival Date: 04/22/2024 Time: 00:29 Bed 8 Private MD: Diagnosis: Lobar pneumonia, unspecified organism;Acute sepsis with septic shock ;Left lower lung pneumonia with consolidation Presentation: 04/22 01:06 Chief complaint: Spouse and/or significant other states: increase in weakness worsening kl over 2 months Stage 4 lung cancer in remission. Coronavirus screen: Vaccine status:. Ebola Screen: Patient negative for fever greater than or equal to 101.5 degrees Fahrenheit, and additional compatible Ebola Virus Disease symptoms. Initial Sepsis Screen: Does the patient meet any 2 criteria? Temp <36.0*C (96.8*F)) or > 38.3*C (100.9*F). HR > 90 bpm. Yes No. Patient's initial sepsis screen is negative. Does the patient have a suspected source of infection? If YES to both, name of provider notified: Christopher Li MD. Risk Assessment: Do you want to hurt yourself or someone else? Patient reports no desire to harm self or others. 01:06 Method Of Arrival: Wheelchair kl 01:06 Acuity: FREDERIC 2 kl 01:26 Note code sepsis called in triage Dr Li in to see patient. vc1 16:49 Onset of symptoms is unknown. cm10 Triage Assessment: 01:16 General: Appears uncomfortable, Behavior is quiet. Pain: Complains of pain in chest. kl Respiratory: Reports cough that is productive, pain with cough. Historical: - PMHx: 01:15 depressive disorder; Hypertensive disorder; insomnia; osteoarthritis; lung cancer kl (osteoarthritis); - Immunization history:: Adult Immunizations . - Infectious Disease History:: Denies. - Social history:: Smoking status: Patient/guardian denies using tobacco, the patient reports quitting approximately 4 years ago. - Family history:: not pertinent. Screenin:00 [facility] ED Fall Risk Assessment (Adult) History of falling in the last 3 months, cm10 including since admission No falls in past 3 months (0 pts) Confusion or Disorientation No (0 pts) Intoxicated or Sedated No (0 pts) Impaired Gait No (0 pts) Mobility Assist Device Used No (0 pt) Altered Elimination No (0 pt) Score/Fall Risk Level 0 - 2 = Low Risk Oriented to surroundings, Maintained a safe environment, Hourly rounding (assess needs \\T\\ fall precautionary measures) done. Abuse screen: Denies threats or abuse. Denies injuries from another. Nutritional screening: No deficits noted. Tuberculosis screening: No symptoms or risk factors identified. Assessment: 16:49 General: See charting in [facility].. cm10 Vital Signs: 01:06 BP 91 / 55; Pulse 129; Resp 21; Temp 101.4; Pulse Ox 91% ; Weight 81.65 kg; Height 5 kl ft. 9 in. ; Pain 8/10; 02:00 BP 99 / 76; Pulse 121; Resp 16; Temp 99.1(O); Pulse Ox 93% on R/A; Weight 83.91 kg (R); mt4 Height 5 ft. 9 in. ; Pain 8/10; 02:00 Body Mass Index 27.32 (83.91 kg, 175.26 cm) mt4 01:06 Pain Scale: Adult kl 02:00 Pain Scale: Adult mt4 Austne Coma Score: 07:17 Eye Response: spontaneous(4). Motor Response: obeys commands(6). Verbal Response: sp4 oriented(5). Total: 15. ED Course: 00:38 Patient arrived in ED. gm2 00:41 Christopher Li MD is Attending Physician. sp4 01:15 Triage completed. kl 01:48 CT Chest Abdomen Pelvis W/O Contrast In Process Unspecified. EDMS 03:06 Arm band placed on right wrist. Patient placed. EKG completed in triage. Results shown mt4 to MD. 05:39 Mehran Tapia MD is Hospitalizing Provider. sp4 07:25 ELISABETH ALMANZAR RN is Primary Nurse. dd2 07:49 Primary Nurse role handed off by ELISABETH ALMANZAR RN bd 08:33 ELISABETH ALMANZAR, RN is Primary Nurse. dd2 10:00 Patient has correct armband on for positive identification. Bed in low position. Call cm10 light in reach. Side rails up X2. Provided Education on: ER process and procedures.. Client placed on continuous cardiac and pulse oximetry monitoring. NIBP monitoring applied. quality assurance monitor on. 10:00 No provider procedures requiring assistance completed. Patient admitted, IV remains in cm10 place. 11:43 926 CM met with patient, mari Kolb and his mother Med at the bedside in the ED exam ane room. Patient identified by name and . Demographic sheet confirmed. Kennedi states maintains a residence in the area, however travels between family members homes, frequently ever since he was diagnosed with cancer for years prior. Mr. Schuster states he has 4 children and 15 grandchildren in the [place] area as well as the [place], [place] area. 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 Kennedi states previously refused a CPAP. No other DME, HH, or home oxygen. Kennedi informed CM that does have an upcoming surgery with for an "inflamed gall bladder", on May 02. states him and Kennedi were in the process of implementing an MPOA. Both Kennedi and Med state they are hoping to be discharged with extra help at home. is amenable to HH, should he need it upon discharge. His preferred discharge plan is to return home and continue traveling to see family. Kennedi states she will be transporting him home upon discharge. CM will continue to follow and coordinate care. Administered Medications: 02:50 Drug: NS 0.9% IV 1000 ml IV at 1 bolus Per protocol; 1000 mL bolus Route: IV; Rate: 1 mt4 bolus; Site: right antecubital; 02:51 Drug: Acetaminophen PO 1000 mg PO once Route: PO; mt4 02:52 Follow up: Response: No adverse reaction mt4 02:52 Drug: Piperacillin-Tazobactam IVPB 3.375 grams IVPB once over 60 mins; (mix in NS 100 mt4 mL) Route: IVPB; Infused Over: 60 mins; Site: right antecubital; 03:48 Follow up: Response: No adverse reaction; IV Status: Completed infusion mt4 02:52 Drug: Dextromethorphan-Guaifenesin PO Liquid 10 mg-100 mg/5 mL 10 ml PO once Route: PO; mt4 03:48 Follow up: Response: No adverse reaction mt4 02:53 Drug: NS 0.9% IV 1000 ml IV at 1 bolus Per protocol; 1000 mL bolus Route: IV; Rate: 1 mt4 bolus; Site: right antecubital; 03:49 Follow up: Response: No adverse reaction; IV Status: Completed infusion mt4 02:53 Drug: NS 0.9% IV 1000 ml IV at 125 ml/hr continuous Route: IV; Rate: 125 ml/hr; Site: mt4 right antecubital; 03:47 Follow up: Response: No adverse reaction; IV Status: Completed infusion mt4 03:28 Drug: Ibuprofen PO 600 mg PO once Route: PO; mt4 03:48 Follow up: Response: No adverse reaction mt4 03:49 Drug: vancoMYCIN IVPB 2 grams IVPB at calculated rate once Route: IVPB; Rate: mt4 calculated rate; Site: right antecubital; 07:49 Not Given (Hemodynamic Parameters): morphineor iv 2 mg IVP once over 4 mins ko1 07:50 Not Given (missed): albuterol2.5 mg Inhalation once ko1 Medication: 16:49 VIS not applicable for this client. cm10 Outcome: 05:41 Decision to Hospitalize by Provider. sp4 10:00 Admitted to ER Hold. Please see [facility] for further documentation. cm10 10:00 Condition: good 10:00 Instructed on the need for admit, 16:49 Patient left the ED. cm10 Signatures: Dispatcher [employer] EDMS Shyann Hodge Kimberly, RN RN kl Calcote, Vanessa, RN RN vc1 Potepalov, Sergey, MD MD sp4 Emmie Neal RN RN cm10 Jennifer Melissa 2 Jevon Ross RN RN mt4 Leora King RN RN ane DAVIS, DIANA, RN RN dd2 Maegan Quinn RN ko1
--- NOTE | 2024-04-22 05:42 | EDPHYS ---
Physician Documentation [facility] Name: Efren Schuster Age: 58 yrs Sex: Male : 1965 Arrival Date: 04/22/2024 Time: 00:29 Bed 8 Private MD: ED Physician Christopher Li HPI: 04/22 00:41 This 58 yrs old Male presents to ER via Unassigned with complaints of Cough, sp4 Fever, PAIN ON BOTH SIDES OF RIBS. 07:17 58-year-old male with history of lung cancer presents with acute onset shortness of sp4 breath fever which has precipitated last couple days. Patient states he has been feeling unwell for the past 3 weeks and he was treated with antibiotics by his imaging scheduler. . Historical: - PMHx: 01:15 depressive disorder; Hypertensive disorder; insomnia; osteoarthritis; lung cancer kl (osteoarthritis); - Immunization history:: Adult Immunizations . - Infectious Disease History:: Denies. - Social history:: Smoking status: Patient/guardian denies using tobacco, the patient reports quitting approximately 4 years ago. - Family history:: not pertinent. ROS: 07:17 Constitutional: Positive fever, positive chills, positive chest discomfort, positive sp4 feeling unwell. 07:17 All other systems are negative, Exam: 07:17 Constitutional: This is a well developed, well nourished patient who is awake, alert, sp4 acutely distressed, tachycardic, febrile on arrival, patient ill-appearing Head/Face: Normocephalic, atraumatic. Eyes: Pupils equal round and reactive to light, extra-ocular motions intact. Lids and lashes normal. Conjunctiva and sclera are not injected. Cornea within normal limits. Periorbital areas with no swelling, redness, or edema. ENT: Nares patent. No nasal discharge, no septal abnormalities noted. Tympanic membranes are normal and external auditory canals are clear. Oropharynx with no redness, swelling, or masses, exudates, or evidence of obstruction, uvula midline. Mucous membranes moist. Neck: Trachea midline, no thyromegaly or masses palpated, and no cervical lymphadenopathy. Supple, full range of motion without nuchal rigidity, or vertebral point tenderness. Chest/axilla: Normal chest wall appearance and motion. Nontender with no deformity. No lesions are appreciated. Cardiovascular: Regular rate and rhythm with a normal S1 and S2. No gallops, murmurs, or rubs. Normal PMI, no JVD. No pulse deficits. Respiratory: Lungs have equal breath sounds bilaterally, clear to auscultation and percussion. No rales, rhonchi or wheezes noted. No increased work of breathing, no retractions or nasal flaring. Abdomen/GI: Soft, with normal bowel sounds. No distension or tympany. No guarding or rebound. No evidence of tenderness throughout. Back: No spinal tenderness. No costovertebral tenderness. Male : Normal genitalia with no discharge or lesions. Skin: Warm, dry with normal turgor. Normal color with no rashes, no lesions, and no evidence of cellulitis. MS/ Extremity: Pulses equal, no cyanosis. Neurovascular intact. Full, normal range of motion. Neuro: Awake and alert, GCS 15, oriented to person, place, time, and situation. Cranial nerves II-XII grossly intact. Motor strength 5/5 in all extremities. Sensory grossly intact. 07:17 ECG was reviewed by the Attending Physician. Positive EKG at 0 314 sinus tachycardia at the rate of 104, otherwise normal Vital Signs: 01:06 BP 91 / 55; Pulse 129; Resp 21; Temp 101.4; Pulse Ox 91% ; Weight 81.65 kg; Height 5 kl ft. 9 in. ; Pain 8/10; 02:00 BP 99 / 76; Pulse 121; Resp 16; Temp 99.1(O); Pulse Ox 93% on R/A; Weight 83.91 kg (R); mt4 Height 5 ft. 9 in. ; Pain 8/10; 02:00 Body Mass Index 27.32 (83.91 kg, 175.26 cm) mt4 01:06 Pain Scale: Adult kl 02:00 Pain Scale: Adult mt4 [place] Coma Score: 07:17 Eye Response: spontaneous(4). Motor Response: obeys commands(6). Verbal Response: sp4 oriented(5). Total: 15. MDM: 00:46 Patient medically screened. sp4 05:02 ED course: CLINICAL HISTORY: Chest pain. COMPARISON: CT Chest abdomen pelvis sp4 04/05/2023. TECHNIQUE: CT CHESTABDOMEN PELVIS WITHOUT IV CONTRAST on 04/22/2024 1:23 AM CDT This exam was performed according to our departmental dose-optimization program, which includes automated exposure control, adjustment of the mA and/or kV according to patient size and/or use of iterative reconstruction technique. FINDINGS: Chest: The heart is normal in size. Right aortic arch is again noted. There is no pericardial effusion. There is an anterior right mediastinal lymph node measuring 16 mm. Right axillary lymph node measures 16 mm. This is unchanged. There is no pleural effusion, pleural thickening or pneumothorax. The left lower lobe bronchus is occluded. There is a dense consolidation of the left lower lobe. This is new from the prior study. There is an irregular nodule in the posterior medial right upper lobe measuring 13 mm. Irregular more central right upper lobe nodule measures 15 mm. This was present previously. Abdomen: The liver is normal in appearance. There is no biliary dilatation. Gallbladder contains a single calcified gallstone. The pancreas and spleen are normal in appearance. The adrenal glands and kidneys are unremarkable. Abdominal aorta is moderately calcified without aneurysm. There is no free air. There is no retroperitoneal adenopathy. Pelvis: There is no bowel obstruction. There is a suture line in the mid sigmoid colon. Urinary bladder is unremarkable. There is no free fluid. There is a small fat-containing right inguinal hernia. Appendix is normal. Skeleton: There are multiple old fracture deformities are postoperative changes of the lateral upper left ribs. IMPRESSION: New left lower lobe pneumonia with occlusion of the left lower lobe bronchus. Underlying mass is possible. Recommend bronchoscopy. Small but pathologically enlarged right axillary lymph node. Unchanged right upper lobe pulmonary nodules. No definite acute inflammatory process in the abdomen or pelvis. Electronically signed by: Tung Garrido MD 04/22/2024 04:16 AM . 05:41 ED course: Acute sepsis reevaluation, blood pressure is improved after IV hydration sp4 with improvement in heart rate.. 07:20 Differential Diagnosis: Obstructed Airway Bronchitis Sinusitis Pharyngitis Allergic sp4 Rhinitis Asthma Exacerbation Viral Syndrome Pneumonia. Data reviewed: vital signs, nurses notes, old medical records, lab test result(s), EKG, radiologic studies, CT scan. Consideration of Admission/Observation Patient was admitted/placed on observation. Escalation of care including admission/observation considered. Management of patient was discussed with the following: Hospitalist: Admit Team . Tube Laser Operator: Amanda ROSE . ED course: Patient's blood pressure has improved. Patient stable for admission to the hospital. Heart rate has improved to 84 bpm. 04/22 01:22 Order name: Blood Culture Adult (2) 4 04/22 00:49 Order name: SARS RAPID; Complete Time: 05:01 sp4 04/22 01:22 Order name: CBC with Diff; Complete Time: 05:01 sp4 04/22 01:22 Order name: CMP; Complete Time: 05:01 4 04/22 01:22 Order name: Lactate w/ 2H reflex if indic.; Complete Time: 05:01 sp4 04/22 01:22 Order name: Protime (+inr); Complete Time: 05:01 4 04/22 01:22 Order name: Ptt, Activated; Complete Time: 05:01 4 04/22 01:22 Order name: Urinalysis w/ reflexes; Complete Time: 16:05 4 04/22 01:24 Order name: BNP; Complete Time: 05:01 4 04/22 01:24 Order name: Troponin High Sensitivity; Complete Time: 05:01 4 04/22 01:24 Order name: CRP; Complete Time: 05:01 sp4 04/22 02:31 Order name: ABG Arterial Blood Gas; Complete Time: 05:01 EDMS 04/22 06:08 Order name: Thyroid Stimulating Hormone; Complete Time: 16:05 EDMS 04/22 06:08 Order name: CBC with Automated Diff EDMS 04/22 06:08 Order name: CBC with Automated Diff EDMS 04/22 06:08 Order name: CBC with Automated Diff EDMS 04/22 06:08 Order name: CBC with Automated Diff EDMS 04/22 06:08 Order name: CBC with Automated Diff EDMS 04/22 06:08 Order name: Comprehensive Metabolic Panel EDMS 04/22 06:08 Order name: Comprehensive Metabolic Panel EDMS 04/22 06:08 Order name: Comprehensive Metabolic Panel EDMS 04/22 06:08 Order name: Comprehensive Metabolic Panel EDMS 04/22 06:08 Order name: Comprehensive Metabolic Panel EDMS 04/22 06:08 Order name: Lipid Profile EDMS 04/22 06:08 Order name: Lipid Profile EDMS 04/22 06:08 Order name: Magnesium EDMS 04/22 06:08 Order name: Magnesium EDMS 04/22 06:08 Order name: Magnesium EDMS 04/22 06:08 Order name: Magnesium EDMS 04/22 06:08 Order name: Magnesium EDMS 04/22 06:08 Order name: Phosphorus EDMS 04/22 06:08 Order name: Phosphorus EDMS 04/22 06:08 Order name: Phosphorus EDMS 04/22 06:08 Order name: Phosphorus EDMS 04/22 06:08 Order name: Phosphorus EDMS 04/22 06:08 Order name: Troponin High Sensitivity EDMS 04/22 06:08 Order name: Troponin High Sensitivity; Complete Time: 16:05 EDMS 04/22 06:08 Order name: Troponin High Sensitivity EDMS 04/22 06:08 Order name: Sputum Culture EDMS 04/22 06:19 Order name: GLUCOSE, PLEURAL FLUID EDMS 04/22 06:19 Order name: AMYLASE, PLEURAL FLUID EDMS 04/22 06:19 Order name: AMYLASE, PLEURAL FLUID EDMS 04/22 06:24 Order name: Vancomycin Level Trough EDMS 04/22 07:32 Order name: Misc. Lab Test jb4 04/22 08:04 Order name: Basic Metabolic Panel; Complete Time: 16:05 EDMS 04/22 09:02 Order name: ABO/RH no charge; Complete Time: 16:05 EDMS 04/22 09:03 Order name: Type and Screen; Complete Time: 16:05 EDMS 04/22 16:00 Order name: Gram Stain--Aerobic Bottle EDMS 04/22 16:00 Order name: Gram Stain--Anaerobic Bottle EDMS 04/22 01:23 Order name: CT Chest Abdomen Pelvis W/O Contrast; Complete Time: 16:05 sp4 04/22 01:24 Order name: EKG; Complete Time: 01:24 sp4 04/22 06:08 Order name: CONS Physician Consult EDMS 04/22 06:19 Order name: Cytology Orders EDMS 04/22 01:22 Order name: Accucheck; Complete Time: 07:51 sp4 04/22 01:22 Order name: Cardiac monitoring; Complete Time: 02:53 sp4 04/22 01:22 Order name: EKG - Nurse/Tech; Complete Time: 03:50 sp4 04/22 01:22 Order name: IV Saline Lock - Large Bore; Complete Time: 02:53 sp4 04/22 01:22 Order name: Labs collected and sent; Complete Time: 02:54 sp4 04/22 01:22 Order name: O2 Per Protocol; Complete Time: :54 sp4 04/22 01:22 Order name: O2 Sat Monitoring; Complete Time: : sp4 04/22 01:22 Order name: Vital Signs; Complete Time: 02:54 sp4 04/22 01:24 Order name: EKG - Nurse/Tech; Complete Time: 04:02 sp4 EC:17 Rate is 104 beats/min. Rhythm is regular, Sinus tachycardia. QRS [place] is Normal. [place] sp4 interval is normal. QRS interval is normal. QT interval is normal. No Q waves. T waves are Normal. No ST changes noted. Clinical impression: No evidence of ischemia. Interpreted by me. Reviewed by me. Administered Medications: 02:50 Drug: NS 0.9% IV 1000 ml IV at 1 bolus Per protocol; 1000 mL bolus Route: IV; Rate: 1 mt4 bolus; Site: right antecubital; 02:51 Drug: Acetaminophen PO 1000 mg PO once Route: PO; mt4 02:52 Follow up: Response: No adverse reaction mt4 02:52 Drug: Piperacillin-Tazobactam IVPB 3.375 grams IVPB once over 60 mins; (mix in NS 100 mt4 mL) Route: IVPB; Infused Over: 60 mins; Site: right antecubital; 03:48 Follow up: Response: No adverse reaction; IV Status: Completed infusion mt4 02:52 Drug: Dextromethorphan-Guaifenesin PO Liquid 10 mg-100 mg/5 mL 10 ml PO once Route: PO; mt4 03:48 Follow up: Response: No adverse reaction mt4 02:53 Drug: NS 0.9% IV 1000 ml IV at 1 bolus Per protocol; 1000 mL bolus Route: IV; Rate: 1 mt4 bolus; Site: right antecubital; 03:49 Follow up: Response: No adverse reaction; IV Status: Completed infusion mt4 02:53 Drug: NS 0.9% IV 1000 ml IV at 125 ml/hr continuous Route: IV; Rate: 125 ml/hr; Site: mt4 right antecubital; 03:47 Follow up: Response: No adverse reaction; IV Status: Completed infusion mt4 03:28 Drug: Ibuprofen PO 600 mg PO once Route: PO; mt4 03:48 Follow up: Response: No adverse reaction mt4 03:49 Drug: vancoMYCIN IVPB 2 grams IVPB at calculated rate once Route: IVPB; Rate: mt4 calculated rate; Site: right antecubital; 07:49 Not Given (Hemodynamic Parameters): morphineor iv 2 mg IVP once over 4 mins ko1 07:50 Not Given (missed): albuterol2.5 mg Inhalation once ko1 Disposition Summary: 04/22/24 05:41 Hospitalization Ordered Notes: Hospitalization Status: Inpatient Admission sp4 Provider: Mehran Tapia sp4 Condition: Stable sp4 Problem: new sp4 Symptoms: have improved sp4 Bed/Room Type: Standard sp4 Location: Intensive Care Unit(04/22/24 15:40) [facility] Room Assignment: 3-(04/22/24 15:40) [facility] Diagnosis - Lobar pneumonia, unspecified organism sp4 - Acute sepsis with septic shock sp4 - Left lower lung pneumonia with consolidation sp4 Forms: - Medication Reconciliation Form sp4 - SBAR form sp4 - Leadership Thank You Letter sp4 Critical care time excluding procedures: 07:19 Critical care time: Bedside Care: 36 minutes, Consultation: 12 minutes, Family sp4 Intervention: 12 minutes. Total time: 60 minutes Signatures: Dispatcher [employer] EDShyann Schultz Kimberly RN Rico Conway RN RN ja1 Kandice Vale PA-C PAChristian ghosh4 Christopher Li MD MD sp4 Jevon Ross RN RN mt4 Maegan Quinn RN ko1 Corrections: (The following items were deleted from the chart) 01:23 01:23 BLOOD CULTURE*+BA.LAB.BRZ ordered. EDMS EDMS 01:23 01:23 CBC+H.LAB.BRZ ordered. EDMS EDMS 01:23 01:23 COMPREHENSIVE METABOLIC PANEL+C.LAB.BRZ ordered. EDMS EDMS 01:23 01:23 LACTATE+C.LAB.BRZ ordered. EDMS EDMS 01:23 01:23 PROTIME (+INR)+COAG.LAB.BRZ ordered. EDMS EDMS 01: 01:23 PTT, ACTIVATED+COAG.LAB.BRZ ordered. EDMS EDMS 01:23 01:23 Urinalysis+U.LAB.BRZ ordered. EDMS EDMS 01:23 01:23 Chest Abdomen Pelvis Wo Con+CT.RAD.BRZ ordered. EDMS EDMS 02:29 01:23 Arterial Blood Gas+RC.LAB.BRZ ordered. EDMS EDMS 07:27 05:41 Telemetry/MedSurg (Inpatient) sp4 bd 07:27 05:41 sp4 bd 15:40 07:27 [facility] ER HOLD bd ja1 15:40 07:27 ERHOLD- bd ja1
--- NOTE | 2024-04-22 05:49 | P.HP ---
Certification for Inpatient Patient admitted to: Inpatient With expected LOS: >2 Midnights <Cass Donis - Last Filed: 04/22/24 17:48> Patient History Date of Service: 04/22/24 <Mehran Tapia - Last Filed: 04/22/24 15:15> Date of Service: 04/22/24 Reason for admission: fever, SOB, cough History of Present Illness: Mr. Efren Schuster is a 58-year-old male with a past medical history of cigarette and alcohol abuse. He states he quit smoking 4 years ago but does still take Chantix. He states he quit drinking in October 2023 but still takes disulfiram daily. Mr. Schuster also has a history of hypertension, depression, insomnia, osteoarthritis, and lung cancer. His lung cancer is currently being treated by Dr. Harrington. He arrived in the emergency department last p.m. with a complaint of cough, chills, fever after "months" of cough and shortness of breath. Initial vital signs in the emergency department at 1 AM were 91/55, 129, 21, with a temperature of 101.4, and his pulse ox reading 91% on room air. He is 5 foot 9 and 82 kg. On exam, his vital signs have improved to 110/80, 85, 18, 98.3, and 94% on 3 L nasal cannula. He is in no acute distress but has expiratory wheezes to all lung florez. In the emergency department he was given a bolus of 2 L of normal saline, has normal saline at 125 an hour infusing, 1 g of Tylenol, 600 mg of ibuprofen, 2 teaspoons of Robitussin, and was started on vancomycin 2 g IV piggyback and Zosyn 3.375 g IV piggyback. Labs: WBC 11.3 with 79.3% neutrophils, H/H 13.9/41.2, sodium 137, potassium 3.5, chloride 103, bicarb 28, glucose 105, BUN 17, creatinine 1.37 with a GFR of 59, transaminitis of AST 163, ALT 118, T. bili 0.6, albumin 3.3, lactate 1.6, INR 1.17, BNP 530, troponin 34.8, CRP 21.5. ABG shows a pH of 7.45, pCO2 37, pO2 61, base excess 1.5, meth hemoglobin 1.7. CT chest abdomen pelvis without contrast shows "the heart is normal in size. Right aortic arch is again noted. There is no pericardial effusion. There is an anterior right mediastinal lymph node measuring 16 mm. Right axillary lymph node measures 16 mm. This is unchanged. There is no pleural effusion, pleural thickening or pneumothorax. The left lower lobe bronchus is occluded. There is a dense consolidation of the left lower lobe. This is new from the prior study. There is an irregular nodule in the posterior medial right upper lobe measuring 13 mm. Irregular more central right upper lobe nodule measures 15 mm. This was present previously. Abdomen: The liver is normal in appearance. There is no biliary dilatation. Gallbladder contains a single calcified gallstone. The pancreas and spleen are normal in appearance. The adrenal glands and kidneys are unremarkable. Abdominal aorta is moderately calcified without aneurysm. There is no free air. There is no retroperitoneal adenopathy. Pelvis: There is no bowel obstruction. There is a suture line in the mid sigmoid colon. Urinary bladder is unremarkable. There is no free fluid. There is a small fat-containing right inguinal hernia. Appendix is normal. Skeleton: There are multiple old fracture deformities and postoperative changes of the lateral upper left ribs. Impression: New left lower lobe pneumonia with occlusion of the left lower lobe bronchus. Underlying mass is possible. Recommend bronchoscopy. Small but pathologically enlarged right axillary lymph node. Unchanged right upper lobe pulmonary nodules. No definite acute inflammatory process in the abdomen or pelvis." Mr. Schuster will be admitted to the ICU for evaluation and treatment of his lung cancer, pneumonia, possible PE with consult to Dr. Lawson and possibly IR thoracentesis. Home medications list reviewed: Yes (please update) - Past Medical/Surgical History Has patient received pneumonia vaccine in the past: Yes -: osteoporosis -: depression -: lung ca -: osteoporosis Psychosocial/ Personal History: Lives with significant other, Kennedi Buckner. - Family History Family History: Reviewed- Non-Contributory - Social History Smoking Status: Former smoker Alcohol use: Yes CD- Drugs: No Caffeine use: Yes Place of Residence: Home <Donis,Cass Abrahan - Last Filed: 04/22/24 17:48> Allergies No Known Allergies Allergy (Verified 11/26/20 07:57) Home Medications: Amlodipine [Norvasc] 5 mg PO DAILY 07/01/20 Cholecalciferol (Vitamin D3) [Vitamin D3] 250 mcg PO DAILY 07/01/20 Multivit-Mins/Iron/Folic/Lycop [Centrum Men's Tablet] 1 each PO DAILY 07/01/20 Divalproex Sodium [Depakote ER] 250 mg PO BEDTIME 10/15/20 Fluoxetine HCl 20 mg PO DAILY 10/15/20 Risperidone [Risperdal] 1 mg PO BID 10/15/20 Temazepam 30 mg PO BEDTIME 10/15/20 Lisinopril/Hydrochlorothiazide [Lisinopril-Hctz 20-12.5 mg Tab] 1 each PO DAILY 11/19/20 clonazePAM [Clonazepam] 1 mg PO DAILY 11/19/20 Hydrocodone/Acetaminophen [Hydrocodon-Acetaminophen 5-325] 1 each PO PRN PRN 02/23/21 Review of Systems 10-point ROS is otherwise unremarkable General: Fever, Weakness Respiratory: Cough, Shortness of Breath, Pleuritic Pain, Sputum <Donis,Cass Abrahan - Last Filed: 04/22/24 17:48> Physical Examination - Studies Laboratory Data (last 24 hrs) 04/22/24 04/22/24 04/22/24 02:00 02:00 02:00 WBC 11.30 H Hgb 13.9 Hct 41.2 Plt Count 198 PT 13.0 H INR 1.17 APTT 32.5 Sodium 137 Potassium 3.5 BUN 17 Creatinine 1.37 H Glucose 105 Total Bilirubin 0.6 AST 163 H ALT 118 H Alkaline Phosphatase 94 <Mehran Tapia - Last Filed: 04/22/24 15:15> - Physical Exam General: Alert, In no apparent distress, Oriented x3 HEENT: Atraumatic, Normocephalic Neck: Supple Respiratory: Expiratory wheezes Cardiovascular: Regular rate/rhythm, Normal S1 S2, Other (Previously tachycardic) Capillary refill: <2 Seconds Gastrointestinal: Soft and benign Musculoskeletal: No clubbing Integumentary: Other (Flushed) Neurological: Normal speech, Normal tone, Normal affect Lymphatics: Axilla lymphadenopathy External genitalia: Deferred Rectal: Deferred - Studies Laboratory Data (last 24 hrs) 04/22/24 04/22/24 04/22/24 02:00 02:00 02:00 WBC 11.30 H Hgb 13.9 Hct 41.2 Plt Count 198 PT 13.0 H INR 1.17 APTT 32.5 Sodium 137 Potassium 3.5 BUN 17 Creatinine 1.37 H Glucose 105 Total Bilirubin 0.6 AST 163 H ALT 118 H Alkaline Phosphatase 94 <Cass Donis - Last Filed: 04/22/24 17:48> Assessment and Plan - Plan Pt seen and examined. I agree with the note by the TIRE SERVICE SUPERVISOR. Pt is a 58yo male with past medical history of cigarette/alcohol abuse, hypertension, depression, insomnia, osteoarthritis, and lung cancer who presents with cough, chills, fever, and SOB. On admission, pt presented with expiratory wheezing. ER physician gave breathing treatment and called medicine for admission. Lab studies show WBC 11.3, Hgb 13.9, sodium 137, potassium 3.5, chloride 103, bicarb 28, glucose 105, BUN 17, creatinine 1.37 with a GFR of 59, transaminitis of AST 163, ALT 118, T. bili 0.6, albumin 3.3, lactate 1.6, INR 1.17, BNP 530, troponin 34.8, CRP 21.5. ABG shows pH of 7.45, pCO2 37, pO2 61, base excess 1.5, meth hemoglobin 1.7. CT chest/ abdomen / pelvis without contrast shows an anterior right mediastinal lymph node measuring 16 mm. Right axillary lymph node measures 16 mm (unchanged). The left lower lobe bronchus is occluded. There is a dense consolidation of the left lower lobe. Atbedside, pt is in NAD. A/P: New left lower lobe pneumonia with occlusion of the left lower lobe bronchus: per CT chest. Likely post-obstructive pneumonia. Will continue iv abx and f/u blood cx. Consulted Pulm. Will need bronchoscopy. Hx of lung cancer: will continue to follow up with Oncology in clinic. Htn: BP is normotensive. Will monitor Insomnia: melatonin Alcohol /tobacco abuse: pt was advised to quit substance abuse. Will place on C IWA protocol and nicotine. DVT ppx: SCD code: full <Mehran Tapia C - Last Filed: 04/22/24 15:15> - Plan hypoxia with sepsis IVF (bolus in ED) Cefepime 1gm IV BID Vancomycin 1.5gm IV BID Inadverant administration of 500ml 3% NS. IV site discontinued and restarted. IVF changed to D5W at 50ml/hr for now. Repeat C7 with Na 143 - will recheck Chem 7 at 1700, Na 141 Monitor and trend CB fever management Lung ca/Bronchogenic mass with effusion Consult Dr. Patel O2 to keep SpO2 > 90 Consent for thoracentesis vs bronchoscopy Heparin drip HTN pt is hypotensive, hold antihypertensives midodrine 5mg TID prn Depression home meds as directed VTE/GI prophylaxis SCDs/heparin drip/Protonix Plan to discharge in: Greater than 2 days - Advance Directives Does patient have a Living Will: No Does patient have a Durable POA for Healthcare: No - Code Status/Comfort Care Code Status Assessed: Yes (Full) <Cass Donis - Last Filed: 04/22/24 17:48>
[2024-04-22] MEDS ORDERED: SODIUM CHLORIDE 0.9% 10ML INJ IV PRN (05:51)
[2024-04-22] MEDS ORDERED: D5 0.9 NS 1,000 ML IV SCH (06:00)
[2024-04-22] MEDS ORDERED: HEPARIN/D5W 25,000 UNIT/500 ML BAG IV SCH (06:00)
[2024-04-22] MEDS ORDERED: IPRATROPIUM BROM 0.5MG/2.5ML ONE ×2 (07:13→13:00)
[2024-04-22] MEDS ORDERED: ARFORMOTEROL TARTRATE 15 MCG/2 ML VIAL.NEB ONE (07:13)
[2024-04-22] MEDS: ARFORMOTEROL TARTRATE 15 MCG/2 ML VIAL.NEB NEB SCH (07:17)
[2024-04-22] MEDS: IPRATROPIUM BROM 0.5MG/2.5ML NEB SCH (07:17)
[2024-04-22] MEDS ORDERED: D5W 1,000 ML IV ONE (08:22)
[2024-04-22] MEDS: D5W 1,000 ML IV SCH (08:30)
[2024-04-22] MEDS: PANTOPRAZOLE 40 MG INJ IVP SCH (09:00)
[2024-04-22] MEDS ORDERED: FOLIC ACID 1 MG, MULTIVITAMINS INJ 10 ML, THIAMINE HCL 100 MG in NA CHLORIDE 0.9% 1,000 ML IV SCH (09:00)
[2024-04-22] MEDS: MIDODRINE HCL 5 MG TABLET PO SCH (09:00)
[2024-04-22] MEDS ORDERED: CEFEPIME 1 GM in NA CHLORIDE 0.9% 100 ML IV SCH (09:00)
[2024-04-22] MEDS: FOLIC ACID 1 MG TABLET PO SCH (09:00)
[2024-04-22] MEDS: Multi-VIT(Centravite Senior) 1 TAB TAB PO SCH (09:00)
[2024-04-22] MEDS: THIAMINE HCL 100 MG TABLET PO SCH (09:00)
[2024-04-22] MEDS: CEFEPIME 2 GM in D5W 100 ML IV SCH (09:00)
[2024-04-22] MEDS ORDERED: FOLIC ACID 1 MG TABLET ONE (09:24)
[2024-04-22] MEDS ORDERED: MULTIVITAMIN TAB PO ONE (09:24)
[2024-04-22] MEDS ORDERED: PANTOPRAZOLE 40 MG INJ ONE (09:24)
[2024-04-22] MEDS ORDERED: CEFEPIME 2 GM VIAL ONE (09:24)
[2024-04-22] MEDS ORDERED: D5W 100 ML IV ONE (09:25)
[2024-04-22] MEDS ORDERED: MIDODRINE HCL 5 MG TABLET ONE (09:25)
[2024-04-22 09:39] VITALS: BMI 26.6
[2024-04-22] MEDS ORDERED: THIAMINE HCL 100 MG TABLET ONE (09:44)
[2024-04-22] MEDS ORDERED: MORPHINE 4 MG/ML SYR ONE ×2 (10:19→15:49)
[2024-04-22] MEDS: MORPHINE 4 MG/ML SYR IV PRN (10:30)
--- NOTE | 2024-04-22 11:23 | RAD REPORT ---
EXAM DESCRIPTION: CT - Chest Abd Pelvis Wo Con - 04/22/2024 1:46 am CLINICAL HISTORY: Chest pain. COMPARISON: CT Chest abdomen pelvis 04/05/2023. TECHNIQUE: CT CHEST ABDOMEN PELVIS WITHOUT IV CONTRAST on 04/22/2024 1:23 AM CDT This exam was performed according to our departmental dose-optimization program, which includes autom ated exposure control, adjustment of the mA and/or kV according to patient size and/or use of iterati ve reconstruction technique. FINDINGS: Chest: The heart is normal in size. Right aortic arch is again noted. There is no pericard ial effusion. There is an anterior right mediastinal lymph node measuring 16 mm. Right axillary lymph node measures 16 mm. This is unchanged. There is no pleural effusion, pleural thickening or pneumothorax. The left lower lobe bronchus is occ luded. There is a dense consolidation of the left lower lobe. This is new from the prior study. There is an irregular nodule in the posterior medial right upper lobe measuring 13 mm. Irregular more cent ral right upper lobe nodule measures 15 mm. This was present previously. Abdomen: The liver is normal in appearance. There is no biliary dilatation. Gallbladder contains a si ngle calcified gallstone. The pancreas and spleen are normal in appearance. The adrenal glands and ki dneys are unremarkable. Abdominal aorta is moderately calcified without aneurysm. There is no free air. There is no retroperi toneal adenopathy. Pelvis: There is no bowel obstruction. There is a suture line in the mid sigmoid colon. Urinary bladd er is unremarkable. There is no free fluid. There is a small fat-containing right inguinal hernia. Ap pendix is normal. Skeleton: There are multiple old fracture deformities are postoperative changes of the lateral upper left ribs. IMPRESSION: New left lower lobe pneumonia with occlusion of the left lower lobe bronchus. Underlying mass is possible. Recommend bronchoscopy. Small but pathologically enlarged right axillary lymph node. Unchanged right upper lobe pulmonary nodules. No definite acute inflammatory process in the abdomen or pelvis. Electronically signed by: Tung Garrido MD 04/22/2024 04:16 AM CDT Due to temporary technical issues with the PACS/Fluency reporting system, reports are being signed by the in house radiologist without review as a courtesy to ensure prompt reporting. The interpreting r adiologist is fully responsible for the content of the report.
[2024-04-22] MEDS ORDERED: VANCOMYCIN 1.5 GM in NA CHLORIDE 0.9% 500 ML IVPB SCH (14:00)
[2024-04-22] MEDS ORDERED: chlordiazePOXIDE HCl 25 MG CAP ONE (15:20)
[2024-04-22] MEDS: chlordiazePOXIDE HCl 25 MG CAP PO SCH (15:36)
[2024-04-22 15:55] LABS: Specific Gravity > 1.030 (1.005-1.030); Sqamous Epithelial <5 /HPF (None Seen); Urine Bacteria <20 /HPF (<20); Urine Bilirubin NEGATIVE (Negative); Urine Blood Negative (Negative); Urine Clarity Clear (Clear); Urine Color Yellow (Yellow); Urine Culture Reflex Order NOT NEEDED; Urine Glucose NEGATIVE (Negative); Urine Ketones NEGATIVE (Negative); Urine Microscopic Reflex YN ORDER UMIC; Urine Mucus Slight /HPF (None Seen); Urine Nitrite NEGATIVE (Negative); Urine Protein TRACE (Negative); Urine RBC <5 /HPF (None Seen); Urine Urobilinogen Normal (Normal); Urine WBC <5 /HPF (<5)
[2024-04-22 17:04] LABS: Anion Gap 5.8 mEq/L (5.0-15.0); Potassium 3.8 mEq/L (3.5-5.1)
[2024-04-22] MEDS: HYDROMORPHONE HCL 2 MG/ML inj IM ONE (17:40)
--- NOTE | 2024-04-22 17:46 | P.PN ---
Date of Service: 04/22/24 Pt moved from ED hold to ICU #3. Breakthrough ribs/waist pain. Will give one dose Dilaudid 1mg IV now. ADA diet placed. Heparin not started in ED. Orders changed to 80mg Lovenox sc q 12h. Mr. Schuster is alert and oriented and was updated on the IV fluid and IV placement changes and what necessitated them and the additional Chem 7 lab draw. He voiced understanding of the situation and the treatment plan changes that were made. <Cass Donis - Last Filed: 04/22/24 17:41> Pt seen and examined. I agree iwth the note by the ENVIRONMENTAL AID. <Mehran Tapia - Last Filed: 04/22/24 22:59>
[2024-04-22] MEDS: ENOXAPARIN 80 MG/0.8 ML SQ SCH (21:02)
[2024-04-22] MEDS: VANCOMYCIN 1.5 GM in NA CHLORIDE 0.9% 500 ML IVPB SCH (23:07)
[2024-04-23] MEDS ORDERED: VANCOMYCIN 1.5 GM in NA CHLORIDE 0.9% 500 ML IVPB SCH ×2 (03:00→15:00)
[2024-04-23 06:16] LABS: Absolute Basophils 0.1 K/uL (0-0.5); Absolute Eosinophils 0.1 K/uL (0-0.5); Absolute Lymphocytes (CBC) 0.9 K/uL (0.7-4.9); Absolute Monocytes 1.6 K/uL (0.1-1.3); Absolute Neutrophil 5.6 K/uL (1.8-8.0); Basophils % 0.7 % (0-1.3); Eosinophils % 1.6 % (0-4.4); Hematocrit 34.8 % (39.6-49.0); Hemoglobin 11.7 g/dL (13.6-17.9); Lymphocytes % 11.1 % (15.3-44.8); MCH 31.5 pg (27.0-35.0); MCHC 33.7 g/dL (32.0-36.0); MCV 93.6 fL (80-100); MPV 9.5 fL (7.6-11.3); Neutrophils % 67.6 % (41.7-73.7); Nucleated Red Blood Cells % 0.1 % (0-0); Platelets 146 thou/uL (152-406); RBC Red Blood Cell Count 3.72 M/uL (4.33-5.43); Red Cell Distribution Width 14.5 % (12.1-15.2)
[2024-04-23 06:44] LABS: Albumin 2.3 g/dL (3.4-5.0); Albumin/Globulin Ratio 0.7 (1.1-1.8); Anion Gap 9.6 mEq/L (5.0-15.0); Bilirubin Total 0.4 mg/dL (0.2-1.0); Globulin 3.4 g/dL (2.3-3.5); Magnesium 1.5 mg/dL (1.6-2.4); Phosphorus 3.2 mg/dL (2.5-4.9); Potassium 3.6 mEq/L (3.5-5.1); Protein, Total 5.7 g/dL (6.4-8.2)
[2024-04-23] MEDS: POTASSIUM CL SA 10 MEQ TAB PO ONE (08:22)
[2024-04-23] MEDS: Magnesium Sulfate 2gm IVPB 2 G/50 ML BAG IV ONE (08:24)
--- NOTE | 2024-04-23 08:34 | P.CNS ---
Date of Consult: 04/23/24 Reason for Consult: Left lower lobe atelectasis Chief Complaint: fever, SOB, cough History of Present Illness: Patient is 58 years of age with a history of lung cancer currently seen by oncology he presented with sudden onset of fever chills and was found to have left lower lobe atelectasis has had chronic chest pain presented to the hospital with hypoxemia Allergies No Known Allergies Allergy (Verified 11/26/20 07:57) Home Medications: Amlodipine [Norvasc] 5 mg PO DAILY 07/01/20 Cholecalciferol (Vitamin D3) [Vitamin D3] 250 mcg PO DAILY 07/01/20 Multivit-Mins/Iron/Folic/Lycop [Centrum Men's Tablet] 1 each PO DAILY 07/01/20 Divalproex Sodium [Depakote ER] 250 mg PO BEDTIME 10/15/20 Fluoxetine HCl 20 mg PO DAILY 10/15/20 Risperidone [Risperdal] 1 mg PO BID 10/15/20 Temazepam 30 mg PO BEDTIME 10/15/20 Lisinopril/Hydrochlorothiazide [Lisinopril-Hctz 20-12.5 mg Tab] 1 each PO DAILY 11/19/20 clonazePAM [Clonazepam] 1 mg PO DAILY 11/19/20 Hydrocodone/Acetaminophen [Hydrocodon-Acetaminophen 5-325] 1 each PO PRN PRN 02/23/21 - Past Medical/Surgical History -: osteoporosis -: depression -: lung ca -: osteoporosis Psychosocial/ Personal History: Lives with significant other, Kennedi Buckner. - Social History Alcohol use: Yes CD- Drugs: No Caffeine use: Yes Place of Residence: Home Review of Systems 10-point ROS is otherwise unremarkable General: Weakness Respiratory: Shortness of Breath Cardiovascular: Chest Pain Physical Examination Temp Pulse Resp BP Pulse Ox 98.5 F 93 H 19 143/97 H 97 04/23/24 07:44 04/23/24 07:44 04/23/24 07:44 04/23/24 07:44 04/23/24 07:44 General: Alert, Oriented x3 Neck: Supple Respiratory: Clear to auscultation bilaterally (Diminished on the left side) Cardiovascular: No edema, Regular rate/rhythm, Normal S1 S2 - Problems (1) Atelectasis of left lung Current Visit: Yes Status: Acute Plan: Patient is 58 years of age with a history of lung cancer treated with Keytruda presented with fever chills he now has new left lower lobe atelectasis plan to do some chest percussion if is not improved we will proceed with bronchoscopy apparently he was also very hypoxic when he came to the hospital again blood gases showed hypoxemia will treat with bronchodilators steroids blood cultures are positive for gram-negative rods DC vancomycin
--- NOTE | 2024-04-23 08:48 | P.PN ---
Subjective Date of Service: 04/23/24 Chief Complaint: fever, SOB, cough Subjective: Improving <Cass Donis - Last Filed: 04/23/24 08:43> Date of Service: 04/23/24 <JocelinYuval ballardshai Price - Last Filed: 04/23/24 10:13> Review of Systems 10-point ROS is otherwise unremarkable Respiratory: Shortness of Breath, Pleuritic Pain <Cass Donis - Last Filed: 04/23/24 08:43> Physical Examination - Vital Signs Temperature: 98.5 F Blood Pressure: 143/97 Pulse: 93 Respirations: 19 Pulse Ox (%): 97 - Physical Exam General: Alert, In no apparent distress, Oriented x3 HEENT: Atraumatic, Normocephalic Neck: Supple Respiratory: Clear to auscultation bilaterally (improved from yesterday), Expiratory wheezes (mild) Cardiovascular: No edema, Regular rate/rhythm, Normal S1 S2, Other (tachycardia) Capillary refill: <2 Seconds Gastrointestinal: Normal bowel sounds, Soft and benign Musculoskeletal: No clubbing, No swelling Integumentary: No rashes Neurological: Normal speech, Normal tone, Normal affect Lymphatics: Axilla lymphadenopathy External genitalia: Deferred Rectal: Deferred - Studies Microbiology Data (last 24 hrs): 04/22/24 01:45 Blood - Blood Blood Culture Gram Stain - Final 04/22/24 01:45 Blood - Blood Gram Stain - Final 04/22/24 02:00 Blood - Blood Blood Culture Gram Stain - Final 04/22/24 02:00 Blood - Blood Gram Stain - Final <Cass Donis - Last Filed: 04/23/24 08:43> - Studies Microbiology Data (last 24 hrs): 04/22/24 01:45 Blood - Blood Blood Culture Gram Stain - Final 04/22/24 01:45 Blood - Blood Gram Stain - Final 04/22/24 02:00 Blood - Blood Blood Culture Gram Stain - Final 04/22/24 02:00 Blood - Blood Gram Stain - Final <Mehran aTpia - Last Filed: 04/23/24 10:13> Assessment And Plan - Plan hypoxia with sepsis, post obstructive pneumonia IVF (bolus in ED) Cefepime 1gm IV BID Vancomycin 1.5gm IV BID Inadverant administration of 500ml 3% NS. IV site discontinued and restarted. IVF changed to D5W at 50ml/hr for now. Repeat C7 with Na 143 - will recheck Chem 7 at 1700, Na 141. D5W stopped Monitor and trend CBC fever management Lung ca/Bronchogenic mass with atelectasis Consult Dr. Patel - following, orders for downgrade from ICU and CPT O2 to keep SpO2 > 90 - 04/23/24 SpO2 95% on 3.5L Consent for thoracentesis vs bronchoscopy Heparin drip -dc'd and Lovenox 80mg sc BID given HTN pt is hypotensive, hold antihypertensives midodrine 5mg TID prn - hypotension resolved 04/22/24 Depression home meds as directed VTE/GI prophylaxis SCDs/Lovenox/Protonix <Cass Donis - Last Filed: 04/23/24 08:43> - Plan Pt seen and examined. I agree with the note by the DRY WALL PLASTERER. Pt is feeling better. Will continue iv vanc and cefepime for post-obstructive pneumonia. Pulm is following. Ok to downgrade pt to med/surg. <Mehran Tapia - Last Filed: 04/23/24 10:13>
--- NOTE | 2024-04-23 12:08 | RAD REPORT ---
EXAM DESCRIPTION: RADChest Single View04/23/2024 9:26 am CLINICAL HISTORY: LLL atelectasis COMPARISON: Chest Single View dated 11/26/2020; Chest Pa And Lat (2 Views) dated 10/15/2020; Chest Abd Pelvis Wo Con dated 04/22/2024 TECHNIQUE: Portable AP view of the chest. FINDINGS: Developing left perihilar and basilar airspace patchy opacities and small left layering ef fusion. No pneumothorax or right-sided effusion. The cardiomediastinal contours are unremarkable. IMPRESSION: Developing left-sided airspace opacities and effusion, concerning for underlying pneumon ia.
--- NOTE | 2024-04-23 14:34 | RAD REPORT ---
EXAM DESCRIPTION: RAD - Chest Lateral Decubitus - 04/23/2024 2:23 pm CLINICAL HISTORY: Cough FINDINGS: Left lower lobe opacity consistent with atelectasis/pneumonia No layering pleural effusion. A significant pleural is not suspected
[2024-04-23] MEDS: clonazePAM 1 MG TAB PO PRN (22:11)
[2024-04-24] MEDS: HYDROCODONE/APAP 7.5/325 MG TAB PO PRN (02:46)
[2024-04-24 06:19] LABS: Absolute Basophils 0.1 K/uL (0-0.5); Absolute Eosinophils 0.2 K/uL (0-0.5); Absolute Monocytes 1.6 K/uL (0.1-1.3); Absolute Neutrophil 3.8 K/uL (1.8-8.0); Basophils % 1.2 % (0-1.3); Eosinophils % 2.4 % (0-4.4); Hematocrit 35.1 % (39.6-49.0); Hemoglobin 12.1 g/dL (13.6-17.9); Lymphocytes % 14.6 % (15.3-44.8); MCH 31.9 pg (27.0-35.0); MCHC 34.5 g/dL (32.0-36.0); MCV 92.5 fL (80-100); MPV 9.8 fL (7.6-11.3); Monocytes % 24.4 % (3.3-12.3); Neutrophils % 57.4 % (41.7-73.7); Platelets 151 thou/uL (152-406); Red Cell Distribution Width 14.4 % (12.1-15.2)
[2024-04-24 06:52] LABS: Albumin 2.5 g/dL (3.4-5.0); Albumin/Globulin Ratio 0.7 (1.1-1.8); Anion Gap 8.5 mEq/L (5.0-15.0); Bilirubin Total 0.4 mg/dL (0.2-1.0); Globulin 3.6 g/dL (2.3-3.5); Magnesium 1.5 mg/dL (1.6-2.4); Phosphorus 3.6 mg/dL (2.5-4.9); Potassium 3.5 mEq/L (3.5-5.1); Protein, Total 6.1 g/dL (6.4-8.2)
[2024-04-24 07:03] LABS: Band Neutrophils 3 % (0-1); Differential Total Cells Count 100; Eosinophils 2 % (0-3); Lymphocytes 11 % (15-42); Segmented Neutrophils 64 % (40-80); White Blood Cell Scan OK (OK)
[2024-04-24 07:04] LABS: Atypical Lymphocytes 1 %; Blood Morphology Comment NOT SEEN (NOT SEEN); Monocytes 17 % (0-10); Platelet Estimate ADEQ
--- NOTE | 2024-04-24 07:28 | RAD REPORT ---
EXAM DESCRIPTION: Akhil Single View04/24/2024 5:55 am CLINICAL HISTORY: Shortness of breath COMPARISON: April 23, 2024 FINDINGS: Left lower lobe atelectasis appears partially resolved Mild left upper lobe opacities may represent pneumonia Right lung appears clear of acute infiltrate. Heart remains enlarged
[2024-04-24] MEDS: POTASSIUM CL SA 10 MEQ TAB PO ONE (09:25)
[2024-04-24] MEDS: Magnesium Sulfate 2gm IVPB 2 G/50 ML BAG IV ONE (09:25)
[2024-04-24] MEDS: CLOPIDOGREL 75 MG TABLET PO SCH (09:26)
[2024-04-24] MEDS: FENTANYL 25 MCG/PATCH TD SCH (10:04)
[2024-04-24] MEDS: CEFEPIME 2 GM in NA CHLORIDE 0.9% 100 ML IV SCH (10:04)
--- NOTE | 2024-04-24 12:03 | P.PN ---
Subjective Date of Service: 04/24/24 Chief Complaint: fever, SOB, cough Subjective: Improving (states he is feeling better today) <Honey Donislul Gauthier - Last Filed: 04/24/24 12:00> Date of Service: 04/24/24 <eMhran Tapia - Last Filed: 04/24/24 12:13> Review of Systems 10-point ROS is otherwise unremarkable Respiratory: Shortness of Breath, SOB with Excertion, Pleuritic Pain <JewelsCasslul Gauthier - Last Filed: 04/24/24 12:00> Physical Examination - Vital Signs Temperature: 97.5 F Blood Pressure: 124/79 Pulse: 89 Respirations: 22 Pulse Ox (%): 95 - Physical Exam General: Alert, In no apparent distress, Oriented x3 HEENT: Atraumatic, Normocephalic Neck: Supple Respiratory: Normal air movement, Diminished, Crackles/rales, Expiratory wheezes Cardiovascular: No edema Capillary refill: <2 Seconds Gastrointestinal: Soft and benign Musculoskeletal: No clubbing Integumentary: No rashes Neurological: Normal speech, Normal tone, Normal affect Lymphatics: No axilla or inguinal lymphadenopathy External genitalia: Deferred Rectal: Deferred - Studies Microbiology Data (last 24 hrs): 04/22/24 01:45 Blood - Blood Aerobic Blood Culture - Final 04/22/24 01:45 Blood - Blood Blood Culture Gram Stain - Final 04/22/24 01:45 Blood - Blood Anaerobic Blood Culture - Final 04/22/24 01:45 Blood - Blood Gram Stain - Final <Cass Donis - Last Filed: 04/24/24 12:00> - Studies Microbiology Data (last 24 hrs): 04/22/24 01:45 Blood - Blood Aerobic Blood Culture - Final 04/22/24 01:45 Blood - Blood Blood Culture Gram Stain - Final 04/22/24 01:45 Blood - Blood Anaerobic Blood Culture - Final 04/22/24 01:45 Blood - Blood Gram Stain - Final <Mehran Tapia - Last Filed: 04/24/24 12:13> Assessment And Plan - Plan hypoxia with sepsis, post obstructive pneumonia IVF (bolus in ED) Cefepime 1gm IV BID Vancomycin 1.5gm IV BID Inadverant administration of 500ml 3% NS. IV site discontinued and restarted. IVF changed to D5W at 50ml/hr for now. Repeat C7 with Na 143 - will recheck Chem 7 at 1700, Na 141. D5W stopped Monitor and trend CBC fever management Lung ca/Bronchogenic mass with atelectasis Consult Dr. Patel - following, orders for downgrade from ICU and CPT O2 to keep SpO2 > 90 - 04/23/24 SpO2 95% on 3.5L Consent for thoracentesis vs bronchoscopy - awaiting rounding per Dr. Patel Heparin drip -dc'd and Lovenox 80mg sc BID given HTN pt is hypotensive, hold antihypertensives midodrine 5mg TID prn - hypotension resolved 04/22/24 Depression home meds as directed VTE/GI prophylaxis SCDs/Lovenox/Protonix <Cass Donis - Last Filed: 04/24/24 12:00> - Plan Pt seen and examined. I agree with the note by the SHAREPOINT ADMINISTRATOR. Pt is feeling better. Will continue iv cefepime ( off iv vanc) for post-obstructive pneumonia. Pulm is following. HE is using 3L BNC. Blood cx is growing GNR. Will continue chest PT. Pulm is considering bronch if chest PT does not improve his respiratory status. <Mehran Tapia - Last Filed: 04/24/24 12:13>
--- NOTE | 2024-04-24 12:42 | P.PN ---
Subjective Date of Service: 04/24/24 Chief Complaint: Possible left lower lobe pneumonia Physical Examination - Vital Signs Temperature: 97.5 F Blood Pressure: 124/79 Pulse: 89 Respirations: 22 Pulse Ox (%): 95 - Studies Microbiology Data (last 24 hrs): 04/22/24 01:45 Blood - Blood Aerobic Blood Culture - Final 04/22/24 01:45 Blood - Blood Blood Culture Gram Stain - Final 04/22/24 01:45 Blood - Blood Anaerobic Blood Culture - Final 04/22/24 01:45 Blood - Blood Gram Stain - Final Assessment And Plan - Current Problems (Diagnosis) (1) Atelectasis of left lung Current Visit: Yes Status: Acute Plan: Patient is 58 years of age with a history of lung cancer treated with Keytruda presented with fever chills he now has new left lower lobe atelectasis plan to do some chest percussion if is not improved we will proceed with bronchoscopy apparently he was also very hypoxic when he came to the hospital again blood gases showed hypoxemia will treat with bronchodilators steroids blood cultures are positive for gram-negative rods DC vancomycin
[2024-04-24] MEDS: PANTOPRAZOLE 40MG TABLET PO SCH (16:32)
[2024-04-24] MEDS: TRAZODONE 50 MG TABLET PO SCH (20:33)
[2024-04-24] MEDS: ESZOPICLONE 1 MG TAB PO SCH (20:34)
[2024-04-24] MEDS: ACETAMINOPHEN 500 MG TAB PO PRN (20:34)
[2024-04-24] MEDS: DIVALPROEX ER 250 MG TAB PO SCH (20:34)
[2024-04-24] MEDS: HYDROCODONE/CHLORPHEN 5 ML/OSYR PO PRN (23:34)
[2024-04-25 05:57] LABS: Absolute Eosinophils 0.1 K/uL (0-0.5); Absolute Monocytes 1.6 K/uL (0.1-1.3); Absolute Neutrophil 4.2 K/uL (1.8-8.0); Basophils % 0.6 % (0-1.3); Eosinophils % 1.7 % (0-4.4); Hematocrit 34.1 % (39.6-49.0); Hemoglobin 11.8 g/dL (13.6-17.9); Lymphocytes % 14.6 % (15.3-44.8); MCH 31.8 pg (27.0-35.0); MCHC 34.6 g/dL (32.0-36.0); MCV 91.8 fL (80-100); MPV 9.2 fL (7.6-11.3); Monocytes % 22.7 % (3.3-12.3); Neutrophils % 60.4 % (41.7-73.7); Nucleated Red Blood Cells % 0.1 % (0-0); Platelets 155 thou/uL (152-406); RBC Red Blood Cell Count 3.71 M/uL (4.33-5.43); Red Cell Distribution Width 14.3 % (12.1-15.2)
[2024-04-25 06:21] LABS: Albumin 2.5 g/dL (3.4-5.0); Albumin/Globulin Ratio 0.7 (1.1-1.8); Anion Gap 9.8 mEq/L (5.0-15.0); Bilirubin Total 0.5 mg/dL (0.2-1.0); Globulin 3.8 g/dL (2.3-3.5); Magnesium 1.8 mg/dL (1.6-2.4); Phosphorus 3.7 mg/dL (2.5-4.9); Potassium 3.8 mEq/L (3.5-5.1); Protein, Total 6.3 g/dL (6.4-8.2)
[2024-04-25 07:00] LABS: Differential Total Cells Count 100; Eosinophils 1 % (0-3); Lymphocytes 14 % (15-42); Monocytes 23 % (0-10); Segmented Neutrophils 62 % (40-80)
[2024-04-25 07:01] LABS: Blood Morphology Comment NOT SEEN (NOT SEEN); Platelet Estimate ADEQ
--- NOTE | 2024-04-25 07:50 | RAD REPORT ---
EXAM DESCRIPTION: RAD - Chest Pa And Lat (2 Views) - 04/25/2024 6:09 am CLINICAL HISTORY: poss pneumonia Chest pain. COMPARISON: Chest Single View dated 04/24/2024; Chest Single View dated 04/23/2024; Chest Single View dated 11/26/2020; Chest Pa And Lat (2 Views) dated 10/15/2020; Chest Abd Pelvis Wo Con dated 04/22/2024 FINDINGS: Moderate left lung opacities are present with reduced left lung volume probably representi ng infiltrate. Small left-sided effusion also likely present. Right lung appears emphysematous with t he area of nodularity in the right upper lobe. The heart is mildly enlarged with a tortuous thoracic aorta. No displaced fractures. IMPRESSION: Left lung opacities are again seen likely infectious in etiology and without significant change since yesterday's
[2024-04-25] MEDS: POTASSIUM CL SA 10 MEQ TAB PO ONE (07:59)
[2024-04-25] MEDS: ENOXAPARIN 40 MG/0.4 ML SQ SCH (07:59)
[2024-04-25] MEDS: MAGNESIUM SULFATE 1 gm IVPB 1 GM/100 ML BAG IV ONE (07:59)
[2024-04-25] MEDS: SERTRALINE HCL 100 MG TAB PO SCH (08:00)
[2024-04-25] MEDS: TRELEGY ELLIPTA PO SCH (08:15)
--- NOTE | 2024-04-25 12:12 | P.PN ---
Subjective Date of Service: 04/25/24 Chief Complaint: Possible left lower lobe pneumonia Subjective: No new changes, No C/O voiced (pt is debilitated) resting better with the fentanyl patch <Cass Donis - Last Filed: 04/25/24 18:59> Date of Service: 04/25/24 <Cecilia Alcocer - Last Filed: 04/27/24 04:44> Review of Systems 10-point ROS is otherwise unremarkable Respiratory: Pleuritic Pain <Cass Donis - Last Filed: 04/25/24 18:59> Physical Examination - Vital Signs Temperature: 98.2 F Blood Pressure: 141/77 Pulse: 108 Respirations: 16 Pulse Ox (%): 90 - Physical Exam General: In no apparent distress, Oriented x3, Other (debilitated) HEENT: Atraumatic, Normocephalic Neck: Supple Respiratory: Normal air movement, Expiratory wheezes Cardiovascular: No edema, Regular rate/rhythm Capillary refill: <2 Seconds Gastrointestinal: Soft and benign Musculoskeletal: No clubbing Integumentary: No rashes Neurological: Normal speech, Normal affect Lymphatics: No axilla or inguinal lymphadenopathy External genitalia: Deferred Rectal: Deferred - Studies Microbiology Data (last 24 hrs): 04/22/24 01:45 Blood - Blood Aerobic Blood Culture - Final 04/22/24 01:45 Blood - Blood Blood Culture Gram Stain - Final 04/22/24 01:45 Blood - Blood Anaerobic Blood Culture - Final 04/22/24 01:45 Blood - Blood Gram Stain - Final <Cass Donis - Last Filed: 04/25/24 18:59> Assessment And Plan - Plan hypoxia with sepsis, post obstructive pneumonia IVF (bolus in ED) Cefepime 1gm IV BID Vancomycin 1.5gm IV BID Inadverant administration of 500ml 3% NS. IV site discontinued and restarted. IVF changed to D5W at 50ml/hr for now. Repeat C7 with Na 143 - will recheck Chem 7 at 1700, Na 141. D5W stopped Monitor and trend CBC fever management Lung ca/Bronchogenic mass with atelectasis Acute resp failure with hypoxia Consult Dr. Patel - following, orders for downgrade from ICU and continue CPT O2 to keep SpO2 > 90 - 04/23/24 SpO2 95% on 3.5L Consent for thoracentesis vs bronchoscopy - awaiting rounding per Dr. Patel Heparin drip -dc'd and Lovenox 80mg sc BID given appreciate pulmonology input HTN pt is hypotensive, hold antihypertensives midodrine 5mg TID prn - hypotension resolved 04/22/24 Depression home meds as directed VTE/GI prophylaxis SCDs/Lovenox/Protonix <Cass Donis - Last Filed: 04/25/24 18:59> Date of Service: 04/25/24 Chart has been reviewed. Events of the last 24 hours have been noted. Case discussed with OTTONIEL. I performed a substantial part of the MDM during this patient's care today. I personally made or approved the documented management plan and acknowledge its risk of complications. 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 Spoke with oncology and plan is to resume chemotherapy/immunotherapy whenever patient completed with antibiotics and treatment. <Cecilia Alcocer - Last Filed: 04/27/24 04:44>
[2024-04-26 08:15] LABS: Absolute Basophils 0.1 K/uL (0-0.5); Absolute Eosinophils 0.2 K/uL (0-0.5); Absolute Lymphocytes (CBC) 1.2 K/uL (0.7-4.9); Absolute Monocytes 1.3 K/uL (0.1-1.3); Absolute Neutrophil 3.4 K/uL (1.8-8.0); Basophils % 0.8 % (0-1.3); Eosinophils % 2.8 % (0-4.4); Hematocrit 35.1 % (39.6-49.0); Hemoglobin 11.9 g/dL (13.6-17.9); MCH 31.8 pg (27.0-35.0); MCV 93.7 fL (80-100); MPV 9.4 fL (7.6-11.3); Monocytes % 21.1 % (3.3-12.3); Neutrophils % 55.3 % (41.7-73.7); Platelets 176 thou/uL (152-406); RBC Red Blood Cell Count 3.74 M/uL (4.33-5.43); Red Cell Distribution Width 14.5 % (12.1-15.2)
[2024-04-26 08:39] LABS: Albumin 2.6 g/dL (3.4-5.0); Albumin/Globulin Ratio 0.7 (1.1-1.8); Anion Gap 7.8 mEq/L (5.0-15.0); Bilirubin Total 0.4 mg/dL (0.2-1.0); Magnesium 1.7 mg/dL (1.6-2.4); Phosphorus 3.3 mg/dL (2.5-4.9); Potassium 3.8 mEq/L (3.5-5.1); Protein, Total 6.6 g/dL (6.4-8.2)
--- NOTE | 2024-04-26 09:54 | P.PN ---
Subjective Date of Service: 04/26/24 Chief Complaint: Persistent fever and left lung pneumonia Change in patient's condition he still continues to have intermittent persistent fever despite being on cefepime Review of Systems General: Fever, Weakness Respiratory: Shortness of Breath Physical Examination - Vital Signs Temperature: 97.8 F Blood Pressure: 128/79 Pulse: 91 Respirations: 14 Pulse Ox (%): 92 - Physical Exam General: Alert, In no apparent distress, Oriented x3 Respiratory: Clear to auscultation bilaterally Cardiovascular: No edema, Regular rate/rhythm, Normal S1 S2 Gastrointestinal: Normal bowel sounds Assessment And Plan - Current Problems (Diagnosis) (1) Fever Current Visit: Yes Status: Acute Plan: Patient is 58 years of age has intermittent persistent fever chest x-ray has improved a lot although he does have some patchy changes on the left side we will change him over to meropenem vancomycin for his persistent fevers so far gram-negative rods isolated in the blood positive ID. Blood cultures are pending patient's white count is normal Qualifiers: Fever type: unspecified Qualified Code(s): R50.9 - Fever, unspecified
--- NOTE | 2024-04-26 10:41 | P.PN ---
Date of Service: 04/25/24 Pt moved from ED hold to ICU #3. Breakthrough ribs/waist pain. Will give one dose Dilaudid 1mg IV now. ADA diet placed. Heparin not started in ED. Orders changed to 80mg Lovenox sc q 12h. Mr. Schuster is alert and oriented and was updated on the IV fluid and IV placement changes and what necessitated them and the additional Chem 7 lab draw. He voiced understanding of the situation and the treatment plan changes that were made.
--- NOTE | 2024-04-26 10:46 | P.PN ---
Date of Service: 04/26/24 Subjective Date of Service: 04/26/24 Chief Complaint: Possible left lower lobe pneumonia, SOB Subjective: No new changes, No C/O voiced (pt is debilitated) resting better with the fentanyl patch, mild confusion on awakening Review of Systems 10-point ROS is otherwise unremarkable Respiratory: Pleuritic Pain Physical Examination - Vital Signs reviewed - Physical Exam General: In no apparent distress, Oriented x3, Other (debilitated) HEENT: Atraumatic, Normocephalic Neck: Supple Respiratory: Normal air movement, Expiratory wheezes Cardiovascular: No edema, Regular rate/rhythm Capillary refill: <2 Seconds Gastrointestinal: Soft and benign Musculoskeletal: No clubbing Integumentary: No rashes Neurological: Normal speech, Normal affect Lymphatics: No axilla or inguinal lymphadenopathy External genitalia: Deferred Rectal: Deferred Assessment And Plan - Plan hypoxia with sepsis, post obstructive pneumonia IVF (bolus in ED) Cefepime 1gm IV BID Vancomycin 1.5gm IV BID Monitor and trend CBC fever management Lung ca/Bronchogenic mass with atelectasis Acute resp failure with hypoxia Consult Dr. Patel - following, continue CPT O2 to keep SpO2 > 90 - 04/23/24 SpO2 95% on 3.5L Consent for bronchoscopy - awaiting rounding per Dr. Patel Lovenox 80mg sc BID given appreciate pulmonology input HTN home medications as indicated Depression home meds as directed VTE/GI prophylaxis SCDs/Lovenox/Protonix <Cass Donis - Last Filed: 04/26/24 10:46> Pt seen and examined. I agree with the note by the COVER SEAMER. Pt still has persistent fever at night. Will change abx to iv vanc and merrem. Pulm is following. Continue 3L BNC and chest PT. Continue home med for Htna nd depression. <Mehran Tapia - Last Filed: 04/26/24 11:27>
[2024-04-26] MEDS: POTASSIUM 25 MEQ EFFERV TAB PO ONE (11:10)
[2024-04-26] MEDS: VANCOMYCIN 1.5 GM in NA CHLORIDE 0.9% 500 ML IVPB SCH (11:10)
[2024-04-26] MEDS: KETOROLAC 30 MG/ML INJ IV PRN (14:25)
[2024-04-26] MEDS: Meropenem 1,000 MG in NA CHLORIDE 0.9% 100 ML IV SCH (20:21)
[2024-04-27 05:44] LABS: Absolute Eosinophils 0.2 K/uL (0-0.5); Absolute Lymphocytes (CBC) 1.3 K/uL (0.7-4.9); Absolute Monocytes 1.2 K/uL (0.1-1.3); Absolute Neutrophil 3.1 K/uL (1.8-8.0); Basophils % 0.8 % (0-1.3); Eosinophils % 3.6 % (0-4.4); Hematocrit 32.2 % (39.6-49.0); Hemoglobin 11.1 g/dL (13.6-17.9); MCH 31.9 pg (27.0-35.0); MCHC 34.4 g/dL (32.0-36.0); MCV 92.5 fL (80-100); MPV 9.1 fL (7.6-11.3); Neutrophils % 52.6 % (41.7-73.7); Nucleated Red Blood Cells % 0.1 % (0-0); Platelets 186 thou/uL (152-406); RBC Red Blood Cell Count 3.48 M/uL (4.33-5.43)
[2024-04-27 05:55] LABS: Anion Gap 6.9 mEq/L (5.0-15.0); Potassium 3.9 mEq/L (3.5-5.1)
[2024-04-27] MEDS: HYDROCODONE/APAP 7.5/325 MG TAB PO PRN (10:19)
[2024-04-27] MEDS ORDERED: FENTANYL 50 MCG/PATCH TD SCH (13:00)
--- NOTE | 2024-04-27 15:07 | P.PN ---
Subjective Date of Service: 04/27/24 Chief Complaint: Persistent fever and left lung pneumonia Mr. Schuster is uncomfortable. He would prefer to try to "go old school" and try Correll for pain instead of the fentanyl patch. Will continue lido patch, toradol, and add Correll. Fentanyl patch removed. <Cass Donis - Last Filed: 04/27/24 15:11> Date of Service: 04/27/24 <Mehran Tapia - Last Filed: 04/27/24 22:08> Review of Systems 10-point ROS is otherwise unremarkable Respiratory: Pleuritic Pain <Cass Donis - Last Filed: 04/27/24 15:11> Physical Examination - Vital Signs Temperature: 97.2 F Blood Pressure: 141/85 Pulse: 84 Respirations: 22 Pulse Ox (%): 98 - Physical Exam General: Alert, In no apparent distress, Oriented x3, Other (weak) HEENT: Atraumatic, Normocephalic Neck: Supple Respiratory: Expiratory wheezes, Other (bilateral breath sounds but diminished) Cardiovascular: No edema, Normal pulses, Regular rate/rhythm Capillary refill: <2 Seconds Gastrointestinal: Soft and benign Musculoskeletal: No clubbing, No tenderness Integumentary: No rashes Neurological: Normal speech, Normal affect, Abnormal strength Lymphatics: No axilla or inguinal lymphadenopathy External genitalia: Deferred Rectal: Deferred <Cass Donis - Last Filed: 04/27/24 15:11> Assessment And Plan - Plan hypoxia with sepsis, post obstructive pneumonia IVF (bolus in ED) Cefepime 1gm IV BID - pulmonology changed abx 04/26 to Merrem and re-added Vanco 2nd to persistent fever Monitor and trend CBC fever management Lung ca/Bronchogenic mass with atelectasis Acute resp failure with hypoxia Dr. Patel - following, orders for downgrade from ICU and continue CPT O2 to keep SpO2 > 90 - 04/23/24 SpO2 95% on 3.5L, pt off O2 this am on rounding at 90% but had 4L on when seen later in the morning appreciate Dr. Patel input Lovenox 80mg sc BID given HTN hypotension resolved 04/22/24 Depression home meds as directed VTE/GI prophylaxis SCDs/Lovenox/Protonix <Cass Donis - Last Filed: 04/27/24 15:11> - Plan Pt seen and examined. I agree with the note by the ENVIRONMENTAL PROGRAMS SPECIALIST. He is using 3L BNC. Pt is asking for more pain meds. Waiting for pulm recommendation. <Mehran Tapia - Last Filed: 04/27/24 22:08>
[2024-04-28 04:50] LABS: Absolute Basophils 0.1 K/uL (0-0.5); Absolute Eosinophils 0.3 K/uL (0-0.5); Absolute Lymphocytes (CBC) 1.7 K/uL (0.7-4.9); Absolute Monocytes 1.3 K/uL (0.1-1.3); Absolute Neutrophil 3.3 K/uL (1.8-8.0); Basophils % 0.9 % (0-1.3); Eosinophils % 4.6 % (0-4.4); Hemoglobin 10.7 g/dL (13.6-17.9); Lymphocytes % 25.1 % (15.3-44.8); MCH 31.4 pg (27.0-35.0); MCHC 33.4 g/dL (32.0-36.0); MCV 93.9 fL (80-100); MPV 8.8 fL (7.6-11.3); Monocytes % 19.1 % (3.3-12.3); Neutrophils % 50.3 % (41.7-73.7); Platelets 207 thou/uL (152-406); RBC Red Blood Cell Count 3.41 M/uL (4.33-5.43); Red Cell Distribution Width 14.2 % (12.1-15.2)
--- NOTE | 2024-04-28 08:57 | P.PN ---
Date of Service: 04/28/24 subjective Afebrile overnight O2 3 L per nasal cannula Will eval for room air sats, to assess for need for home O2 Review of Systems 10-point ROS is otherwise unremarkable Respiratory: Pleuritic Pain Physical Examination - Vital Signs Reviewed - Physical Exam General: Alert, In no apparent distress, Oriented x3, Other (weak) HEENT: Atraumatic, Normocephalic Neck: Supple Respiratory: Expiratory wheezes, Cardiovascular: No edema, Normal pulses, Regular rate/rhythm Capillary refill: <2 Seconds Gastrointestinal: Soft and benign Musculoskeletal: No clubbing, No tenderness Integumentary: No rashes Neurological: Normal speech, Normal affect, Abnormal strength Lymphatics: No axilla or inguinal lymphadenopathy External genitalia: Deferred Rectal: Deferre Assessment And Plan - Plan Acute hypoxia with with respiratory failure Sepsis without shock sepsis, secondary to pneumonia Bacteremia 04/22 Positive for anaerobic, gram-negative rods x 2 bottles, repeat 816 no growth IVF (bolus in ED) Cefepime 1gm IV BID - pulmonology changed abx 04/26 to [place] and re-added Vanco 2nd to persistent fever Monitor and trend CBC fever management Weaned to 3 L per nasal cane Lung ca/Bronchogenic mass with atelectasis Acute resp failure with hypoxia Dr. Patel - following, orders for downgrade from ICU and continue CPT O2 to keep SpO2 > 90 - 04/23/24 SpO2 95% on 3.5L, pt off O2 this am on rounding at 90% but had 4L on when seen later in the morning appreciate Dr. Patel input Lovenox 80mg sc BID given HTN hypotension resolved 04/22/24 Depression home meds as directed VTE/GI prophylaxis SCDs/Lovenox/Protonix <Ruby Garcia - Last Filed: 04/28/24 08:59> Pt seen and examined. I agree with the note by the SUPERINTENDENT OF GENERATION. He is using 3L BNC. Will do home oxygen evaluation and dc pt with levaquin and doxycycline for 1 week per Pulm recommendation. <Mehran Tapia - Last Filed: 04/28/24 10:47>
[2024-04-28 09:51] VITALS: O2SAT 94
[2024-04-28] MEDS: levoFLOXacin 750 MG TAB PO SCH (12:06)
--- NOTE | 2024-04-28 12:18 | P.PN ---
Subjective Date of Service: 04/28/24 Chief Complaint: Persistent fever left lung pneumonia Patient is doing much better no fever for the past 48 hours wants to go home chest pain Review of Systems General: Weakness Respiratory: Shortness of Breath Cardiovascular: Chest Pain Physical Examination - Vital Signs Temperature: 98.7 F Blood Pressure: 140/95 Pulse: 93 Respirations: 16 Pulse Ox (%): 94 - Physical Exam General: Alert, Oriented x3 Respiratory: Clear to auscultation bilaterally Cardiovascular: No edema, Regular rate/rhythm, Normal S1 S2 Assessment And Plan - Current Problems (Diagnosis) (1) Fever Current Visit: Yes Status: Acute Plan: Patient's fever has resolved have an staph or MRSA infection there is a so far negative discharge patient on on levofloxacin and doxycycline check room air pulse ox Qualifiers: Fever type: unspecified Qualified Code(s): R50.9 - Fever, unspecified
[2024-04-28 12:19] VITALS: BP 140/95; TEMP 98.7
--- NOTE | 2024-04-28 13:09 | P.DS ---
Admission Date: 04/22/24 Discharge Date: 04/28/24 Reason for Admission: Persistent fever left lung pneumonia Brief History of Present Illness: Mr. Efren Schuster is a 58-year-old male with a past medical history of cigarette and alcohol abuse. He states he quit smoking 4 years ago but does still take Chantix. He states he quit drinking in October 2023 but still takes disulfiram daily. Mr. Schuster also has a history of hypertension, depression, insomnia, osteoarthritis, and lung cancer. His lung cancer is currently being treated by Dr. Harrington. He arrived in the emergency department last p.m. with a complaint of cough, chills, fever after "months" of cough and shortness of breath. Initial vital signs in the emergency department at 1 AM were 91/55, 129, 21, with a temperature of 101.4, and his pulse ox reading 91% on room air. He is 5 foot 9 and 82 kg. On exam, his vital signs have improved to 110/80, 85, 18, 98.3, and 94% on 3 L nasal cannula. He is in no acute distress but has expiratory wheezes to all lung florez. In the emergency department he was given a bolus of 2 L of normal saline, has normal saline at 125 an hour infusing, 1 g of Tylenol, 600 mg of ibuprofen, 2 teaspoons of Robitussin, and was started on vancomycin 2 g IV piggyback and Zosyn 3.375 g IV piggyback. Labs: WBC 11.3 with 79.3% neutrophils, H/H 13.9/41.2, sodium 137, potassium 3.5, chloride 103, bicarb 28, glucose 105, BUN 17, creatinine 1.37 with a GFR of 59, transaminitis of AST 163, ALT 118, T. bili 0.6, albumin 3.3, lactate 1.6, INR 1.17, BNP 530, troponin 34.8, CRP 21.5. ABG shows a pH of 7.45, pCO2 37, pO2 61, base excess 1.5, meth hemoglobin 1.7. CT chest abdomen pelvis without contrast shows "the heart is normal in size. Right aortic arch is again noted. There is no pericardial effusion. There is an anterior right mediastinal lymph node measuring 16 mm. Right axillary lymph node measures 16 mm. This is unchanged. There is no pleural effusion, pleural thickening or pneumothorax. The left lower lobe bronchus is occluded. There is a dense consolidation of the left lower lobe. This is new from the prior study. There is an irregular nodule in the posterior medial right upper lobe measuring 13 mm. Irregular more central right upper lobe nodule measures 15 mm. This was present previously. Abdomen: The liver is normal in appearance. There is no biliary dilatation. Gallbladder contains a single calcified gallstone. The pancreas and spleen are normal in appearance. The adrenal glands and kidneys are unremarkable. Abdominal aorta is moderately calcified without aneurysm. There is no free air. There is no retroperitoneal adenopathy. Pelvis: There is no bowel obstruction. There is a suture line in the mid sigmoid colon. Urinary bladder is unremarkable. There is no free fluid. There is a small fat-containing right inguinal hernia. Appendix is normal. Skeleton: There are multiple old fracture deformities and postoperative changes of the lateral upper left ribs. Impression: New left lower lobe pneumonia with occlusion of the left lower lobe bronchus. Underlying mass is possible. Recommend bronchoscopy. Small but pathologically enlarged right axillary lymph node. Unchanged right upper lobe pulmonary nodules. No definite acute inflammatory process in the abdomen or pelvis." Mr. Schuster will be admitted to the ICU for evaluation and treatment of his lung cancer, pneumonia, possible PE with consult to Dr. Lawson and possibly LAYA tipton. - Physical Exam General: Alert, In no apparent distress, Oriented x3 HEENT: Atraumatic, Normocephalic Neck: Supple Respiratory: Expiratory wheezes Cardiovascular: Regular rate/rhythm, Normal S1 S2, Other (Previously tachycardic) Capillary refill: <2 Seconds Gastrointestinal: Soft and benign Musculoskeletal: No clubbing Integumentary: Other (Flushed) Neurological: Normal speech, Normal tone, Normal affect Lymphatics: Axilla lymphadenopathy External genitalia: Deferred Hospital Course: Mr. Efren Schuster is a 58-year-old male with a past medical history of cigarette and alcohol abuse. He states he quit smoking 4 years ago but does still take Chantix. He states he quit drinking in October 2023 but still takes disulfiram daily. Mr. Schuster also has a history of hypertension, depression, insomnia, osteoarthritis, and lung cancer. His lung cancer is currently being treated by Dr. Harrington. He arrived in the emergency department last p.m. with a complaint of cough, chills, fever after "months" of cough and shortness of breath. He was noted to have hypoxia, lung cancer with Bronchogenic mass with effusion. He was evaluated by Dr. Lawson pulmonary. Also noticed persistence fever to have bacteremia, on antibiotics. Patient tolerating diet, stable for discharge to home with follow-up appointment with primary care physician. Plan to discharge with home O2. He will need to follow-up with oncology after discharge. PROBLEM: Lung ca/Bronchogenic mass with [id number] with oncology after discharge Acute resp failure with hypoxia Bacteremia-reviewed gram-negative rods x 2 bottles 04/22, repeat blood cultures 04/25 no growth Continue ad niranjan activity. Take doxy and levaquin as prescribed for 1 week. Follow up with PCP and Pulm within 1 - 2 weeks. Continue home medicines as previously prescribed GOAL: Clear understanding of disease process INSTRUCTIONS: Physician Discharge Instructions: -Follow-up with PCP in 1 to 2 weeks -Please call [phone] if any questions regarding hospital stay -Please call nursing station at [phone] if any nursing or medication questions -Return to the emergency room if symptoms worsen Diet: ADA, low sodium Activity: Fall precautions <Ruby Garcia - Last Filed: 04/28/24 13:14> Admission Date: 04/22/24 Discharge Date: 04/28/24 Hospital Course: Pt seen and examined. I agree with the note by the PROTOZOOLOGIST. Pt qualified for home oxygen. Will dc pt with levaquin and doxy for 1 week. Follow up with Pulmonoologist and PCP within 1 - 2 weeks. <Mehran Tapia - Last Filed: 04/28/24 14:20> Disposition: DC HOME/HOME HEALTH CARE Discharge Condition: FAIR Vital Signs/Physical Exam: Temp Pulse Resp BP Pulse Ox 98.7 F 93 H 16 140/95 H 94 04/28/24 12:18 04/28/24 12:18 04/28/24 12:18 04/28/24 12:18 04/28/24 12:18 Laboratory Data at Discharge: WBC 6.60 thou/uL (4.3-10.9) 04/28/24 04:37 Hgb 10.7 g/dL (13.6-17.9) L 04/28/24 04:37 Hct 32.0 % (39.6-49.0) L 04/28/24 04:37 Plt Count 207 thou/uL (152-406) 04/28/24 04:37 PT 13.0 SECONDS (9.4-12.5) H 04/22/24 02:00 INR 1.17 04/22/24 02:00 APTT 32.5 SECONDS (24.3-36.9) 04/22/24 02:00 Sodium 142 mEq/L (136-145) 04/28/24 04:37 Potassium 4.0 mEq/L (3.5-5.1) 04/28/24 04:37 BUN 15 mg/dL (7-18) 04/28/24 04:37 Creatinine 0.91 mg/dL (0.70-1.30) 04/28/24 04:37 Glucose 105 mg/dL (74-106) 04/28/24 04:37 Phosphorus 3.3 mg/dL (2.5-4.9) 04/26/24 07:28 Magnesium 1.7 mg/dL (1.6-2.4) 04/26/24 07:28 Total Bilirubin 0.4 mg/dL (0.2-1.0) 04/26/24 07:28 AST 21 U/L (15-37) 04/26/24 07:28 ALT 28 U/L (16-61) 04/26/24 07:28 Alkaline Phosphatase 68 U/L (45-117) 04/26/24 07:28 Triglycerides 128 mg/dL (<150) 04/23/24 05:43 Cholesterol 147 mg/dL (<200) 04/23/24 05:43 HDL Cholesterol 34 mg/dL (40-60) L 04/23/24 05:43 Cholesterol/HDL Ratio 4.32 04/23/24 05:43 <Ruby Garcia - Last Filed: 04/28/24 13:14> Vital Signs/Physical Exam: Temp Pulse Resp BP Pulse Ox 98.7 F 93 H 16 140/95 H 94 04/28/24 12:18 04/28/24 12:18 04/28/24 12:18 04/28/24 12:18 04/28/24 12:18 Laboratory Data at Discharge: WBC 6.60 thou/uL (4.3-10.9) 04/28/24 04:37 Hgb 10.7 g/dL (13.6-17.9) L 04/28/24 04:37 Hct 32.0 % (39.6-49.0) L 04/28/24 04:37 Plt Count 207 thou/uL (152-406) 04/28/24 04:37 PT 13.0 SECONDS (9.4-12.5) H 04/22/24 02:00 INR 1.17 04/22/24 02:00 APTT 32.5 SECONDS (24.3-36.9) 04/22/24 02:00 Sodium 142 mEq/L (136-145) 04/28/24 04:37 Potassium 4.0 mEq/L (3.5-5.1) 04/28/24 04:37 BUN 15 mg/dL (7-18) 04/28/24 04:37 Creatinine 0.91 mg/dL (0.70-1.30) 04/28/24 04:37 Glucose 105 mg/dL (74-106) 04/28/24 04:37 Phosphorus 3.3 mg/dL (2.5-4.9) 04/26/24 07:28 Magnesium 1.7 mg/dL (1.6-2.4) 04/26/24 07:28 Total Bilirubin 0.4 mg/dL (0.2-1.0) 04/26/24 07:28 AST 21 U/L (15-37) 04/26/24 07:28 ALT 28 U/L (16-61) 04/26/24 07:28 Alkaline Phosphatase 68 U/L (45-117) 04/26/24 07:28 Triglycerides 128 mg/dL (<150) 04/23/24 05:43 Cholesterol 147 mg/dL (<200) 04/23/24 05:43 HDL Cholesterol 34 mg/dL (40-60) L 04/23/24 05:43 Cholesterol/HDL Ratio 4.32 04/23/24 05:43 <Mehran Tapia - Last Filed: 04/28/24 14:20> Diet: AHA Activity: Fall precautions Time spent managing pt's care (in minutes): 45 <Ruby Garcia - Last Filed: 04/28/24 13:14> <Mehran Tapia - Last Filed: 04/28/24 14:20> Home Medications: Cholecalciferol (Vitamin D3) [Vitamin D3] 250 mcg PO DAILY 07/01/20 Divalproex Sodium [Depakote ER] 250 mg PO BEDTIME 10/15/20 clonazePAM [Clonazepam] 1 mg PO DAILY 11/19/20 Hydrocodone/Acetaminophen [Hydrocodone-Acetamin 5-325 mg] 1 each PO Q6HR PRN 02/23/21 Eszopiclone [Lunesta*] 1 mg PO BEDTIME 04/23/24 Fluticasone/Umeclidin/Vilanter [Trelegy Ellipta 100-62.5-25] 1 puff PO DAILY 04/23/24 Pantoprazole Sodium 40 mg PO AC 04/23/24 Sertraline [Zoloft*] 200 mg PO DAILY 04/23/24 Trazodone [Desyrel*] 100 mg PO BEDTIME 04/23/24 Varenicline Tartrate [Chantix] 1 mg PO BID 04/23/24 Doxycycline Hyclate 100 mg PO BID 7 Days #14 tab 04/28/24 Hydrocodone 5/APAP 325 [Pillow 5/325] 1 tab PO Q4H PRN 3 Days #18 tab 04/28/24 levoFLOXacin [Levaquin*] 750 mg PO Q24H 7 Days #7 tab 04/28/24 New Medications: Doxycycline Hyclate 100 mg PO BID 7 Days #14 tab levoFLOXacin [Levaquin*] 750 mg PO Q24H 7 Days #7 tab Hydrocodone 5/APAP 325 [Pillow 5/325] 1 tab PO Q4H PRN 3 Days #18 tab PRN Reason: Pain Physician Discharge Instructions: Continue ad niranjan activity. Take doxy and levaquin as prescribed for 1 week. Follow up with PCP and Pulm within 1 - 2 weeks. Followup: Anitra Ortega NP [Primary Care Provider] - Damaris Lincoln MD [ACTIVE - CAN ADMIT] - Delbert Patel MD [ACTIVE - CAN ADMIT] -
[2024-04-28] MEDS ORDERED: VANCOMYCIN 1.5 GM in NA CHLORIDE 0.9% 500 ML IVPB SCH (18:00)
[2024-04-28] MEDS ORDERED: DOXYCYCLINE 100 MG CAP PO SCH (21:00)
--- NOTE | 2024-04-29 18:09 | EKG ---
Test Date: 2024-04-22 Test Time: 03:14:31 [employer] Building: [place] MEASUREMENT RESULTS: Intervals: Rate: 104 MO: 150 QRSD: 80 QT: 336 QTc: 441 [place]: P: 54 MO: 150 QRS: 40 T: 14 INTERPRETIVE STATEMENTS: Sinus tachycardia Nonspecific T wave abnormality Abnormal ECG Compared to ECG 04/22/2024 03:14:01 T-wave abnormality now present Electronically Signed On 04-29-24 17:54:56 CDT by Fabrizio Shelton
--- NOTE | 2024-04-29 18:09 | EKG ---
Test Date: 2024-04-22 Test Time: 03:14:01 [place]: [place] MEASUREMENT RESULTS: Intervals: Rate: 104 DE: 150 QRSD: 82 QT: 342 QTc: 449 [place]: P: 57 DE: 150 QRS: 41 T: 20 INTERPRETIVE STATEMENTS: Sinus tachycardia Otherwise normal ECG Compared to ECG 10/15/2020 15:21:37 Sinus rhythm no longer present T-wave abnormality no longer present Electronically Signed On 04-29-24 17:54:58 CDT by Fabrizio Shelton
== END 2024-04-28 14:57 | disposition home or self-care (01) | DRG 871 ==
LOC: ER 00:29 → ERHOLD 05:51 → 3RD-ICU 16:39 → 2ND 04-23 16:00
PROVIDERS: ADMIT Hospitalist; ATTEND Hospitalist
PROC: 4A033R1 Measurement of Arterial Saturation, Peripheral, Percutaneous Approach (ICD-10-PCS; principal; 2024-04-22)
PROC: 5A09357 Assistance with Respiratory Ventilation, Less than 24 Consecutive Hours, Continuous Positive Airway Pressure (ICD-10-PCS; 2024-04-22)
DX: A41.9 Sepsis, unspecified organism (principal); J18.1 Lobar pneumonia, unspecified organism; J96.01 Acute respiratory failure with hypoxia; C34.90 Malignant neoplasm of unspecified part of unspecified bronchus or lung; I10 Essential (primary) hypertension; M19.90 Unspecified osteoarthritis, unspecified site; G47.00 Insomnia, unspecified; F32.A Depression, unspecified; M81.0 Age-related osteoporosis without current pathological fracture; F10.10 Alcohol abuse, uncomplicated; F17.200 Nicotine dependence, unspecified, uncomplicated; Z79.899 Other long term (current) drug therapy
CPT/HCPCS: 36415; 36600; 71045; 71046; 71250; 74176; 80048; 80053; 80061; 80202; 81001; 82805; 82947; 83605; 83735; 83880; 84100; 84443; 84484; 85025; 85610; 85730; 86140; 86850; 86900; 86901; 87040; 87205; 87811; 93005; 93970; 94668; 96365; 96375; 99285; J0692; J1650; J2185; J2270; J2470; J2543; J3475; J7030; J7040; J7050; J7131; J7605; J7644